=== PATIENT | male | born 1965 | race Caucasian/White ===

== ENCOUNTER → 2025-01-30 | Outpatient (CLI) | payer OTHER, SELFPAY ==
--- NOTE | 2025-01-30 08:13 | MRI_ITS ---
PROCEDURE: BRAIN WITHOUT CONTRAST 01/30/2025 REASON FOR EXAM: Clinical history of ventriculomegaly, syncope TECHNIQUE: Procedure Code: MRIBR Modality: MR Procedure: BRAIN WITHOUT CONTRAST Multiplanar and multisequence images were obtained. COMPARISON: None available. FINDINGS: No acute infarct or hemorrhage. A few scattered nonspecific periventricular and subcortical T2/FLAIR white matter hyperintensities in the cerebral hemispheres compatible with chronic microvascular ischemic changes. No extra-axial fluid collection.No herniation of the brain. There is supratentorial ventriculomegaly. The 4th ventricle is normal in size. There is no transependymal edema. The basal cisterns are patent. The intracranial large vessel arterial flow voids are maintained. The mastoid air cells clear. There is scattered paranasal mucosal thickening. The orbits are unremarkable. The calvarial bone marrow signal is within normal limits. MRI/Brain without Contrast IMPRESSION: 1. Supratentorial ventriculomegaly without transependymal edema suggestive of c hronic obstructive hydrocephalus. 2. No acute infarct or hemorrhage. Reading Location: [id number]
== END | disposition home or self-care (01) ==
PROVIDERS: PCP Family Medicine; Referring Provider Psychiatry & Neurology Neurology; Visit Provider Psychiatry & Neurology Neurology
DX: G93.89 Other specified disorders of brain (principal); R55 Syncope and collapse
CPT/HCPCS: 70551

== ENCOUNTER 2025-02-13 07:49 | Day surgery (SDC) | payer OTHER, SELFPAY ==
[2025-02-13] VITALS (7 sets, daily range): BP systolic 98–116; BP diastolic 65–77; PULSE 48–64; RESP 16–18; TEMP 35.7–36.2; O2SAT 93–97; BMI 25.8
--- OUTSIDE RECORDS SUMMARY | 2025-02-13 07:54 | XMS RPT_ITS | CCD ---
Author Organization [facility] Care Team Providers Care [employer] Instructor Name Role Phone Gabriele Rosales Primary Care Provider Bobby HARDY, Gabriele Littlejohn Unavailable [facility], . Unavailable Omar HARDY, Dr. Gamboa Unavailable Nelson CASE MANAGEMENT ASSOCIATE, Chelita Unavailable Ho LU, Anat Hopkins Unavailable Rudy CASE MANAGEMENT ASSOCIATE, Trang E Unavailable Unavailable Nicky BORDEN, Yasmeen Unavailable Unavailable Trev AMAYAN, Marcie Unavailable Unavailable King KIET-C, Roberto Murdock Unavailable Chandni JIMENEZ, Jennifer Lira Unavailable Unavaila dana Quiroz PA-C, Kirstin Hopkins Unavailable [phone] Goldy CASE MANAGEMENT ASSOCIATE, Nicole Sparks Unavailable Unavailab vicki Tenorio LPN, Jes Tai Unavailable Unavailab vicki Finnegan MD, Anderson Lira Unavailable Kayleen CASE MANAGEMENT ASSOCIATE, Demetria Unavailable Unavailabl e Tang CASE MANAGEMENT ASSOCIATE, Mi Unavailable Unavailable Unavailable Unavailable Oscar CASE MANAGEMENT ASSOCIATE, Lb Unavailable Unavailable Wilmar BORDEN, Sima Unavailable Unavailable Yannick AMAYAN, Hillary Unavailable Unavailabl e RONNY ESPINAL MD Admitting Unavailable RONNY ESPINAL MD Primary Care Unavailable RONNY ESPINAL MD Attending Unavailable GABRIELE ROSALES Consulting Unavailable GABRIELE ROSALES Referring Unavailable PROVIDER, UNKNOWN Consulting Unavailable PROVIDER, UNKNOWN Consulting Unavailable PROVIDER, UNKNOWN Consulting Unavailable ARGENIS GILES Admitting Unavailable ARGENIS GIELS Primary Care Unavailable ARGENIS GILES Attending Unavailable GABRIELE ROSALES Consulting Unavailable PROVIDER, UNKNOWN Consulting Unavailable PROVIDER, UNKNOWN Consulting Unavailable PROVIDER, UNKNOWN Consulting Unavailable Medications Completed/Discontinued Medications Medication Drug Class(es) Dates Sig (Normalized) Sig (Original) [id number] actuat albuterol 0.09 mg/actuat metered dose inhaler (11 sources) beta2-Adrenergic Agonist Start: 07-10-2015 End: 04-20-2017 take 2 puff(s) by inhalation every four to six hours as needed Ventolin HFA 108 (90 Base) MCG/ACT Inhalation Aerosol Solution ; 2 (two) puffs puffs every 4-6 hours as needed for 0 days Quantity: 1 {Inhaler} Refills: 0 Ordered: 20-Apr-2017 ALEX Tenorio Jes Tai Start: 10-Jul-2015 End: 20-Apr-2017 Status: Inactive Comments: Medication taken as needed. Comment on above: Medication taken as needed. amoxicillin 875 mg / clavulanate 125 mg oral tablet (20 sources) Penicillin-class Antibacterial Start: 06-17-2017 End: 04-24-2018 take 1 tablet by mouth twice daily Amoxicillin-Pot Clavulanate 875-125 MG Oral Tablet ; 1 (one) Tablet bid for 0 days Quantity: 20 {Tablet} Refills: 0 Ordered: 24-Apr-2018 Start: 17-Jun-2017 End: 24-Apr-2018 Status: Inactive Start: 12-04-2014 End: 12-14-2014 take 1 tablet by mouth twice daily at mealtime AUGMENTIN, 875-125MG (Oral Tablet) ; 1 (one) Tablet BID for 10 days Quantity: 20 {Tablet} Refills: 0 Ordered: 04-Dec-2014 MD Gabriele Rosales Start: 04-Dec-2014 End: 14-Dec-2014 Status: Inactive Comments: Take with food Comment on above: Take with food azithromycin 250 mg oral tablet (11 sources) Macrolide Antimicrobial Start: 016 End: 016 ZITHROMAX Z-NIURKA, 250MG (Oral Tablet) ; 2 (two) Tablet today and then 1 tablet daily x 4 days for 0 days Quantity: 1 {Package} Refills: 0 Ordered: 30-Jul-2015 ALEX Damon Start: 10-Jul-2015 End: 30-Jul-2015 Status: Inactive codeine phosphate 2 mg/ml / promethazine hydrochloride 1.25 mg/ml oral solution (11 sources) Opioid Agonist, Phenothiazine Start: 018 End: 03-11-2 019 take 5 mL by mouth once daily at bedtime as needed for cough Promethazine-Codeine 6.25-10 MG/5ML Oral Syrup ; 5 Milliliter Milliliter qhs, prn cough for 0 days Quantity: 120 {Milliliter} Refills: 0 Ordered: 24-Apr-2018 Start: 01-Jun-2017 End: 24-Apr-2018 Status: Inactive cyclobenzaprine hydrochloride 10 mg oral tablet (11 sources) Muscle Relaxant Start: End: take 1 tablet by mouth every eight hours Cyclobenzaprine HCl 10 MG Oral Tablet ; 1 (one) Tablet q8hrs for 0 days Quantity: 30 {Tablet} Refills: 0 Ordered: 11-Jan-2020 Start: 28-Mar-2019 End: 11-Jan-2020 Status: Inactive doxycycline hyclate 100 mg oral capsule (11 sources) Tetracycline-class Drug Start: 016 End: take 1 capsule by mouth twice daily DOXYCYCLINE HYCLATE, 100MG (Oral Capsule) ; 1 (one) Cap two times daily for 10 days Quantity: 20 {Capsule} Refills: 0 Ordered: 18-Jul-2015 TABITHA Quiroz Start: 18-Jul-2015 End: 28-Jul-2015 Status: Inactive levoFLOXacin 500 mg oral tablet (11 sources) Quinolone Antimicrobial Start: 015 End: take 1 tablet by mouth once daily LEVAQUIN, 500MG (Oral Tablet) ; 1 Tab Daily for 10 days Quantity: 10 {Tablet} Refills: 0 Ordered: 10-Jun-2015 MD Gabriele Rosales Start: 10-Dec-2014 End: 20-Dec-2014 Status: Inactive meloxicam 7.5 mg oral tablet (11 sources) Nonsteroidal Anti-inflammatory Drug Start: 021 End: take 1 tablet by mouth once daily Meloxicam 7.5 MG Oral Tablet ; 1 (one) Tablet daily for 30 days Quantity: 30 {Tablet} Refills: 2 Ordered: 29-Jan-2022 BARBARA Tariq Start: 26-Feb-2020 End: 29-Jan-2022 Status: Inactive omeprazole 20 mg delayed release oral capsule (12 sources) Proton Pump Inhibitor Start: 018 End: take 1 capsule by mouth once daily Omeprazole 20 MG Oral Capsule Delayed Release ; 1 (one) Capsule DR Capsule DR qd for 0 days Quantity: 30 {Capsule} Refills: 3 Ordered: 04-Dec-2018 ALEX Beyernifer Start: 20-Apr-2017 End: 04-Dec-2018 Status: Inactive Comment on above: Take 20 mg by mouth once daily. ondansetron 4 mg disintegrating oral tablet (11 sources) Serotonin-3 Receptor Antagonist Start: End: take 1 tablet by mouth three times daily as needed Ondansetron 4 MG Oral Tablet Disintegrating ; 1 (one) Tablet three times daily, as needed for 7 days Quantity: 21 {Tablet} Refills: 0 Ordered: 12-May-2020 TABITHA Teague Start: 12-May-2020 End: 19-May-2020 Status: Inactive Comments: Medication taken as needed. Comment on above: Medication taken as needed. oxyCODONE hydrochloride 5 mg oral tablet (11 sources) Opioid Agonist Start: End: take 1 tablet by mouth every four hours as needed for pain oxyCODONE HCl 5 MG Oral Tablet ; 1 (one) Tablet q4h, prn severe pain for 0 days Quantity: 28 {Tablet} Refills: 0 Ordered: 11-Jan-2020 Start: 28-Mar-2019 End: 11-Jan-2020 Status: Inactive Comments: max 4/24 hrs Comment on above: max 4/24 hrs predniSONE 20 mg oral tablet (20 sources) Start: 023 End: 024 predniSONE 20 mg tablet ; 1 (one) Tablet as directed for 0 days Quantity: 20 {Tablet} Refills: 0 Ordered: 23-Jun-2023 ALEX Moore Start: 12-Aug-2022 End: 23-Jun-2023 Status: Inactive Comments: Take 3tabs qd for 3 days thenTake 2tabs qd for 3 days thenTake 1tab qd for 3 days thenTake 1/2tab qd for 4 days. Start: 01-11-2020 End: 01-31-2020 take 3 tablets by mouth once daily, then take 2 tablets by mouth once daily, then take 1 tablet by mouth once daily, then take 0.5 tablet by mouth once daily predniSONE 20 MG Oral Tablet ; 1 (one) Tablet daily for 0 days Quantity: 20 {Tablet} Refills: 0 Ordered: 31-Jan-2020 BARBARA Tariq Start: 11-Jan-2020 End: 31-Jan-2020 Status: Inactive Comments: Take 3tabs qd for 3 days thenTake 2tabs qd for 3 days thenTake 1tab qd for 3 days thenTake 1/2tab qd for 4 days. Start: 12-25-2018 End: 03-28-2019 take 3 tablets by mouth once daily, then take 2 tablets by mouth once daily, then take 1 tablet by mouth once daily, then take 0.5 tablet by mouth once daily predniSONE 20 MG Oral Tablet ; Tablet for 0 days Quantity: 20 {Tablet} Refills: 0 Ordered: 28-Mar-2019 MONIQUE DamonN Chelita Start: 25-Dec-2018 End: 28-Mar-2019 Status: Inactive Comments: Take 3tabs qd for 3 days thenTake 2tabs qd for 3 days thenTake 1tab qd for 3 days thenTake 1/2tab qd for 4 days. Comment on above: Take 3tabs qd for 3 days thenTake 2tabs qd for 3 days thenTake 1tab qd for 3 days thenTake 1/2tab qd for 4 days. sertraline 25 mg oral tablet (11 sources) Serotonin Reuptake Inhibitor Start: 1 End: 1 Sertraline HCl 25 MG Oral Tablet ; 1 (one) Tablet qd x 10days then 1/2 tab qd x 10days then stop for 20 days Quantity: 15 {Tablet} Refills: 0 Ordered: 09-Apr-2020 MD Gabriele Rosales Start: 09-Apr-2020 End: 29-Apr-2020 Status: Inactive traMADol hydrochloride 50 mg oral tablet (11 sources) Opioid Agonist Start: 8 End: 8 take 1 tablet by mouth every six hours as needed for pain TraMADol HCl 50 MG Oral Tablet ; 1 (one) Tablet q 6hrs prn pain for 7 days Quantity: 28 {Tablet} Refills: 0 Ordered: 09-Dec-2017 MD Gabriele Rosales Start: 09-Dec-2017 End: 16-Dec-2017 Status: Inactive Comments: OARRS 12/09/17 Comment on above: OARRS 12/09/17 Problems Active Problems Problem Classification Problem Date Documented Da te Episodic/Chronic Abdominal pain (20 sources) Generalized abdominal pain; Translations: [Generalized abdominal pain] 08-12-2022 Episodic Anxiety disorders (20 sources) Mixed anxiety and depressive disorder; Translations: [Anxiety disorder, unspecified] 08-12-2022 Chronic Chronic obstructive pulmonary disease and bronchiectasis (20 sources) Bronchitis; Translations: [Bronchitis, not specified as acute or chronic] 07-19-2015 Episodic Esophageal disorders (20 sources) Gastroesophageal reflux disease; Translations: [Gastro-esophageal reflux disease without esophagitis] Chronic Headache; including migraine (20 sources) Headache; Translations: [Headache] 08-12-2022 Episodic Nausea and vomiting (20 sources) Nausea; Translations: [Nausea] Episodic Nonspecific chest pain (20 sources) Chest pain; Translations: [Chest pain, unspecified] 08-12-2022 Episodic Osteoarthritis (20 sources) Osteoarthritis of left knee joint; Translations: [Unilateral primary osteoarthritis, left knee] 08-12-2022 Chronic Other circulatory disease (20 sources) Elevated blood-pressure reading without diagnosis of hypertension; Translations: [Elevated blood-pressure reading, without diagnosis of hypertension] 06-08-2023 Episodic Other connective tissue disease (20 sources) Pain in right foot; Translations: [Pain in right foot] 08-12-2022 Episodic Other connective tissue disease (16 sources) Left achilles tendonitis; Translations: [Achilles tendinitis, left leg] 06-23-2023 Episodic Other ear and sense organ disorders (20 sources) Otitis externa; Translations: [Unspecified otitis externa, unspecified ear] 08-12-2022 Chronic Other ear and sense organ disorders (20 sources) Impacted cerumen in left ear; Translations: [Impacted cerumen, left ear] 08-12-2022 Episodic Other ear and sense organ disorders (20 sources) Pain of ear structure; Translations: [Otalgia, unspecified ear] 08-12-2022 Episodic Other injuries and conditions due to external causes (11 sources) Injury of left foot; Translations: [Unspecified injury of left foot, initial encounter] 05-08-2014 Episodic Other non-traumatic joint disorders (20 sources) Pain in left shoulder; Translations: [Pain in joint, shoulder region] 08-12-2022 Episodic Other nutritional; endocrine; and metabolic disorders (20 sources) Body mass index 30+ - obesity; Translations: [Body mass index (BMI) 30.0-30.9, adult] 08-12-2022 Chronic Other screening for suspected conditions (not mental disorders or infectious disease) (20 sources) Patient encounter status; Translations: [Encounter for screening for malignant neoplasm of prostate] 06-08-2023 Episodic Other upper respiratory infections (20 sources) Upper respiratory infection; Translations: [Acute upper respiratory infection, unspecified] 12-04-2018 Episodic Residual codes; unclassified (1 source) Family history of malignant neoplasm of gastrointestinal tract; Translations: [Family history of malignant neoplasm of digestive organs] Episodic Spondylosis; intervertebral disc disorders; other back problems (20 sources) Acute low back pain; Translations: [Lumbago] 08-12-2022 Episodic Unclassified (11 sources) Follow up for multiple chronic conditions - The patient is here for follow-up of anxiety and depression. The patient always takes the prescribed medications. No side effects noted (needs refills if he should continue meds). The patient engages in regular exercise program 3-5 times per week (6x/week at gym). The patient's out of office blood pressure checks occur rarely. The patient states that there is no recent angina or dyspnea, in general mood has improved ( has noticed a slight difference. Patient feels that the sertraline may be making him feel a little better, would like to discuss increasing dosage.) and they do not have headaches. Note for Multiple chronic conditions follow-up: Patient here today for 4 week follow-up, at last office visit he was started on Sertraline 25mg daily. he states that he has noticed only a small improvement in his mood and is interested in increasing the dose of his medication today. Also seen for left shoulder pain and started on Meloxicam 7.5mg daily. The Meloxicam has helped but continues to have pain of his left shoulder, states that the pain is not debilitating as it was. The shoulder pain seems to be worse in the evenings. Feels that the meloxicam is hard on his stomach, will become nauseated after taking. He has been taking the meloxicam with food. 02-26-2020 Past or Other Problems Problem Classification Problem Date Documented Da te Episodic/Chronic Unclassified (11 sources) Foot pain - The pain is in the right foot and is located in the midfoot (Around the arch of the foot). The onset of the foot pain was gradual following no specific incident and has been occurring in a persistent pattern for 1 week. The course has been gradually improving. The pain is mild to moderate. The pain is characterized as tearing. The pain is aggravated by any movement. The pain has been relieved by NSAIDs and ice. The symptoms have been associated with muscle stiffness, giving way, swelling, pain in ankle, popping/crepitus and difficulty with shoe wear, but have not been associated with muscle weakness, locking, pain in calf, painful ROM, decreased ROM, warmth or other joint complaints. Note for Foot pain: Patient denies any known injury. 08-12-2022 Unclassified (11 sources) Ear pain - The onset of the pain has been gradual and has been occurring in a persistent pattern for days (10-14 days). The course has been constant (some days are better, some days are worse). The pain is described as a moderate (moderate to severe) sharp pain, pressure and plugged. The pain is described as being located in the inner ear. The pain is felt in the left ear. The symptoms have been associated with runny nose (mild) and tinnitus (constant), while the symptoms have not been associated with chills, decreased hearing, fever, non-purulent discharge from ear, purulent discharge from ear, sore throat, cough or vertigo. Medical History includes recurrent sinusitis, but there is no history of seasonal allergies. Note for Ear pain: Been taking Advil at night. The ear pain seems to get worse at night. Advil temporarily relieves pain. 01-29-2022 Unclassified (11 sources) Nausea - The nausea has been occurring in an intermittent (comes and goes throughout the day but is daily occurance) pattern for 1 month. The course has been constant. The nausea occurs approximately one hour after meals (also when something is put in his mouth such as taking a pill, using tooth brush). The symptoms are aggravated by eating. The symptoms have been associated with abdominal pain (usually in the lower abdomen, patient reports that this pain occurs randomly and is not associated with the diarrhea or constipation he is experiencing), chest pain, diarrhea (1-3 times a week, loose but not bloody), headache and vomiting (multiple times over the past month, reports 2-3 times a week), but there has been no associated dysuria, fever, hematemesis or jaundice. Note for Nausea: Takes Pepto-bismul and Kaopectate, these help some. Sometimes, drinking coke will help.Does have heartburn that is getting worse. Does take Prilosec as needed. Has not been using Prilosec much recently.States that he does not have an appetite or he will eat a lot. Usually can not sleep but then will have some nights that he sleeps all night.The patient reports that these symptoms seemed to start when he was taking Sertraline for his anxiety. The patient has tapered off of the sertraline, but the symptoms have not changed since he stopped the medication. The patient reports that he has good days and bad days with his anxiety, but he is not interested in trying another medication at this time. 05-12-2020 Unclassified (11 sources) Follow-up - Patient is here today for follow-up for chest pain. Was last seen for chest pain 01/11/2020. Had EKG done that was normal. CRP, ESR, CMP and CBC done at that time. Was started on Prednisone taper dose. Feels that the steroids helped but continues to have pain of the left shoulder/shoulder blade/ upper back left side. He states that his chest pain has completely resolved and that the shoulder pain is slightly better. He states that the pain is his shoulder is a constant, aching pain, but it will randomly feel the pain become sharp and more intense. He states that this change in pain intensity happens about 10-20 times a day and that there is no increase or change in the pain with shoulder movement. Patient denies any previous injury to his left shoulder.States that his job is very stressful--is having trouble sleeping. Feels depressed. Feels shaky all over. Is not able to relax. He states that he will have episodes of shakiness during which his arms will shake and he will feel like his whole body can't relax. He denies any loss of consciousness, passing out, shortness of breath, palpitations, chest pain, or sweating with these episodes. He states that these episodes happen multiple times a week and have been happening for a while. He has been feeling anxious and depressed for several years, but this has greatly worsened over the past year. The patient states that he was offered medication for depression several years ago, but opted to try lifestyle changes instead, which worked for some time. The patient reports that he has little interest in doing things and has a hard time getting out of bed in the morning. He reports also feeling nervous, anxious, and irritable. He reports that most times he wishes he was , but he has never considered killing himself. He reports that he loves his family and would never want to leave them in that way. 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 01-31-2020 Unclassified (11 sources) Chest pain - The onset of the pain has been sudden and has been occurring in a persistent pattern for 1 week. The pain is described as a moderate sharp pain and stabbing sensation. The pain is described as being located in the left chest and radiates to the left arm and back. There are no precipitating factors. The symptoms have no aggravating factors. The symptoms are relieved by nothing (Patient states that Aleve takes the edge off the pain). There has been no associated blurred vision, dizziness, dyspnea, fever or headache. Previous evaluations include ECG (EKG for similar chest pain in 2017 was normal). Note for Chest pain: Patient denies any palpitations, headache, nausea, vomiting, cough, or shortness of breath. Patient has had similar episodes of chest pain in the past. 01-11-2020 Unclassified (11 sources) Back pain - The onset of the back pain has been sudden and has been occurring in a persistent pattern for 3 days. The pain is characterized as stabbing. The pain is located in the lumbar area. The pain is precipitated by another event (getting dressed). Note for Back pain: -Tried heat and 600mg ibuprofen for pain relief. 03-28-2019 Unclassified (11 sources) Knee pain - The onset of the knee pain has been sudden following no specific incident and has been occurring for 2 days. The knee pain is in the left knee. The knee pain is characterized as a dull aching (Lump is noted). 12-25-2018 Unclassified (11 sources) Cold Symptoms - Symptoms include runny nose, ear pain, sore throat, dry cough, general malaise and headache, but do not include nasal congestion. The onset was sudden 1 day(s) ago. The symptoms occur constantly. The patient describes this as moderate in severity and unchanged. Current treatment includes NSAIDs (2 am). The patient has been exposed to an individual with similar symptoms. Medical history includes seasonal allergies, but patient denies history of recurrent sinusitis, recurrent strep pharyngitis, asthma, tonsillectomy or recurrent ear infections. Note for Upper respiratory infection: Does get sinus infections yearly. 12-04-2018 Unclassified (11 sources) Well adult male - The patient feels well with no complaints, has good energy level and is sleeping well. The patient has a balanced diet and takes no supplemental vitamins & iron. The patient does not exercise. The patient sleeps 7 hours per night. Note for Well adult male: foster care examred and brown spots on hands wanting looked at reviewed by B 04-24-2018 Unclassified (11 sources) Headache - The onset of the headache has been acute and has been occurring in a persistent pattern for 2 weeks. The course has been constant. The headache is characterized as moderate and a dull ache. The headache is experienced any time of the day (no diurnal variation). The headache is described as being located in the frontal area. The symptoms have been associated with nausea. Note for Headache: reviewed by B 12-09-2017 Unclassified (11 sources) Cold Symptoms - Symptoms include nasal congestion, hoarseness, dry cough, productive cough, fever, chills and headache, but do not include ear pain. The onset was sudden 4 day(s) ago. The symptoms occur constantly. The patient describes this as moderate in severity and unchanged. Current treatment includes non-prescription cold medication. The patient has been exposed to an individual with similar symptoms. 06-01-2017 Unclassified (11 sources) Gastroesophageal Reflux Disease - No changes in management were made at the last visit. The last clinic visit was 2 year(s) ago. Symptoms include heartburn and acid taste in the mouth. Onset was gradual. The patient describes this as worsening. Note for Gastroesophageal reflux disease: Has tried OTC Nexium with no improvement. Had previously been Omeprazole(2014) and did well on that medication. He had EGD in 2014 and was reportedly normal. 04-20-2017 Unclassified (11 sources) Chest pain - The onset of the pain has been gradual and has been occurring in a persistent pattern for 3 days (woke up and pain was there.). The pain is described as a mild to moderate pressure sensation (Feels like someone sitting on chest with needles.). There are no precipitating factors. The symptoms are relieved by rest. The symptoms have been associated with cough (occasional cough and getting over some sinus issues.) and headache (uses Ibuprofen for this which helps with headache but does not relieve chest pain.), but have not been associated with blurred vision, dizziness, fever, hypertension, nausea, neck pain, palpitations or vomiting. There have been no previous evaluations. Note for Chest pain: Pain is in both sides of chest and into shoulders and both sides. Its in upper and lower chest area. Pain is worse when he turns certain way or bends forward. Also hurts when he goes to lay down. Pt has hx of GERD. Noted some intermittent left arm pain without exertion. Tolerates activities well. 04-08-2016 Unclassified (11 sources) Cold Symptoms - Symptoms include nasal congestion, runny nose, ear pain, sore throat, dry cough, productive cough (cough is worst symptom; + wheezing; no SOB) and headache, but do not include fever or general malaise. The onset was gradual 3 day(s) ago. The symptoms occur constantly. The patient describes this as moderate in severity and unchanged. Current treatment includes mucinex. The patient has been exposed to an individual with similar symptoms (daughter). Medical history includes recurrent sinusitis and tonsillectomy, but patient denies history of seasonal allergies, recurrent strep pharyngitis, asthma or recurrent ear infections. 07-10-2015 Unclassified (11 sources) Cold Symptoms - Symptoms include sneezing, nasal congestion, runny nose, ear pain, sore throat, hoarseness, dry cough and headache, but do not include ear fullness, fever, chills or general malaise. The onset was sudden 3 day(s) ago. The symptoms occur constantly. The patient describes this as moderate in severity and worsening. Current treatment includes non-prescription cold medication and NSAIDs. Patient denies history of seasonal allergies or asthma. Note for Upper respiratory infection: Pt gets sinusitis frequently. 12-04-2014 Unclassified (11 sources) Plugged ear - Was swimming 5 days and left ear has felt plugged ever since. No pain. Also complains of tinnitus. reviewed by [facility] 10-14-2014 Unclassified (11 sources) toe injury - Patient is here with complaining of toe pain. Today he slipped on a step and hit toes on the steps. Thinks they bent underneath him. It is his left foot; 4th and 5th digits. Are red, swollen, and painful. Has not taken any medication. 05-08-2014 Unclassified (11 sources) Abdominal pain - The onset of the abdominal pain has been acute and has been occurring in a persistent pattern for 3 months. The course has been increasing. The pain is described as a moderate dull ache (nausea) and cramping (on occasion). The pain is located in the upper abdomen and does not radiate. The symptoms have no relieving factors. The symptoms have been associated with bloating, constipation, diarrhea and nausea. Note for Abdominal pain: He was seen in Oct for this. Took Omeprazole 20mg daily for 1 month. Symptoms improved but then came back. not as bad as before. He cut down carbs and cut out wine . He cut down caffeine. Sx are better than they were in Oct. 03-20-2014 Unclassified (11 sources) Cold Symptoms - Symptoms include nasal congestion, runny nose (mostly PND), ear fullness, sore throat, dry cough (some chest tightness), general malaise, headache and facial pain, but do not include fever or chills. The onset was gradual 2 day(s) ago. The symptoms occur constantly. The patient describes this as moderate in severity and unchanged. Current treatment includes acetaminophen and NSAIDs. The patient has been exposed to an individual with similar symptoms. Medical history includes recurrent sinusitis (Says he gets this every year.) and tonsillectomy, but patient denies history of seasonal allergies, recurrent strep pharyngitis, asthma or recurrent ear infections. 11-22-2013 Unclassified (11 sources) Nausea - The onset of the nausea has been gradual and has been occurring in an intermittent pattern for 6 months. The course has been recurrent. The nausea occurs approximately one hour after meals. The symptoms are aggravated by eating. The symptoms are relieved by antacids (Pepto Bismal helps sometimes.). The symptoms have been associated with abdominal pain (and has occassional diarrhea or constipation.). Note for Nausea: Nausea is bad enough sometimes that it auses headache. Pt states he has put on 25# over last 10 mnths. Pt just moved here from [place] 1 year ago. He eats out now a lot as part of his work and diet is much different. Much more strach in deit now. 11-12-2013 Unclassified (1 source) Well adult male 06-23-2023 Unclassified (8 sources) Well adult male - The patient feels well with minor complaints (left heel pain). The patient has a balanced diet. The patient exercises daily. The patient sleeps 7 hours per night. Note for Well adult male: reviewed by [facility] 06-23-2023 Unclassified (1 source) Chest pain - The onset of the pain has been sudden and has been occurring in an episodic pattern for 5 days. Each episode lasts 1 minute. The pain is described as a moderate to severe sharp pain and stabbing sensation. The pain is described as being located in the substernal area and does not radiate. There are no precipitating factors. The symptoms are aggravated by stress. The symptoms are relieved by rest. The symptoms have been associated with dizziness and fever (Pt states that after he got back from working out of town he had fever, chills coughing, sneezing. Pt states that in past day his Sx are a lot better just feeling weak. These symptoms started on Tuesday.). There have been no previous evaluations. There is a medical history of asthma (as a child), while there is no medical history of cigarette smoking or emotional problems. There is a family history of myocardial infarction before age 55 (uncle) and hypertension (mother), while there is no family history of diabetes. 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 This happened as a singular episode on Tuesday. He has not had any episodes since. 08-16-2024 Results Test Name Value Interpretation Reference Range Facility ED MED ADMINISTRATION DETAIL on 11-02-2024 ED MED ADMINISTRATION DETAIL Architectural Associate - DAYANNA APONTE DOB: 1965, , Medication Administration Record [id number] [facility] [place] [address] [phone] 10/30/2024 Patient: DAYANNA APONTE Sex: Male : 1965 Age: 59y MEASUREMENTS: Wt: 79.4 kg, Ht/Kee: 70.0 in, BMI: 25.11 ALLERGIES: No known drug allergies Medication Ordered Medication Administration Date/Time CefTRIAXone 06:12 10/30 CefTRIAXone (Rocephin) IVPB 2gm/50ml NS 2 Started (Rocephin) IVPB g started at 100 mL/hr diluted in sodium chloride IVPB 0.9 06:12 10/30/2024 2gm/50ml NS 2 % Minibag+ 50 mL via Site# 1. Allergies verified and Maggie Blake R.N. g diluted in confirmed 5 rights. IV patency established. IV site Stopped sodium chloride checked: no pain, redness, or swelling. IV flushed 07:00 10/30/2024 IVPB 0.9 % thoroughly pre-medication administration. Information Yaw Mi, Minibag+ 50 mL reviewed. Verbalizes understanding. - 06:13 Maggie Blake R.NLiban at 100 mL/hr R.N. Scanned (NOW x1) 07:00 10/30 Medication Discontinued: IV infused. Total amount infused: 50 mL. IV patency established. IV site checked: no pain, redness, or swelling. IV flushed thoroughly post-medication administration. - 07:00 Yaw Mi R.N. 1 of 3 Architectural Associate - DAYANNA APONTE, : 1965, , IV NS 0.9 % 06:10/30 IV NS 0.9 % 1000 mL started in bag#1 1000 Started 1000 mL at 999 mL at 999 mL/hr via Site# 1. Allergies verified and 06:10/30/2024 mL/hr (NOW x1) confirmed 5 rights. IV patency established. IV site Maggie Blake R.N. checked: no pain, redness, or swelling. IV flushed Stopped thoroughly pre-medication administration. Information 07:32 10/30/2024 reviewed. Verbalizes understanding. - 06:13 Lynn Sarabia R.N. R.N. Scanned 07:32 10/30 Medication Discontinued: bag #1 infused. Total amount infused: 1000 mL. IV patency established. IV site checked: no pain, redness, or swelling. IV flushed thoroughly post-medication administration. - 07:32 Lynn Khoury R.N. Ondansetron 06:11 10/30 Ondansetron IVP 4 mg given via Site# 1. Given IVP 4 mg (NOW Allergies verified and confirmed 5 rights. IV patency 06:11 10/30/2024 x1) established. IV site checked: no pain, redness, or swelling. Maggie Blake R.N. IV flushed thoroughly pre-medication administration. - Scanned 06:13 Maggie Blake R.N. GI Cocktail PO 07:10/30 GI Cocktail PO given. Allergies verified and Given (Maalox Oral 30 confirmed 5 rights. Information reviewed with patient 07:28 10/30/2024 mL, lidocaine including reason for taking this medication. Verbalizes Lynn Khoury Lidocaine understanding. - 07:28 Lynn Khoury R.N. RLibanN. Viscous 2 % Not Scanned mucosal solution 5 mL, hyoscyamine ODT (0.125 mg disintegrating tablet) 0.125 mg) (NOW x1) 2 of 3 Architectural Associate - APONTEDAYANNA, : 1965, , HYDROmorphon 08:12 10/30 HYDROmorphone (Dilaudid) IVP 0.5 mg given Given e (Dilaudid) IVP via Site# 1. Allergies verified and confirmed 5 rights. IV 08:12 10/30/2024 0.5 mg (NOW patency established. IV site checked: no pain, redness, or Lynn Khoury, x1, HIGH ALERT swelling. IV flushed thoroughly pre-medication R.N. MEDICATION) administration. Information reviewed with patient Scanned including reason for taking this medication and sedative warning. Verbalizes understanding. Medication Wastage: 0.5 mg wasted. - 08:12 Lynn Khoury R.N. Pantoprazole 09:17 10/30 Pantoprazole (Protonix) IVP 40 mg given via Given (Protonix) IVP Site# 1. Allergies verified and confirmed 5 rights. IV 09:17 10/30/2024 40 mg (NOW x1) patency established. IV site checked: no pain, redness, or Lynn Iarida, swelling. IV flushed thoroughly pre-medication R.N. administration. Information reviewed with patient. Scanned Verbalizes understanding. - 09:17 Lynn Khoury R.N. 3 of 3 Normal [facility] ED NURSES CLINICAL NOTEon ED NURSES CLINICAL NOTE Nurse Narrative - DAYANNA APONTE, : 1965, , Nurse Clinical Narrative [address] [address] [id number] 10/30/2024 05:54:00 Patient: DAYANNA APONTE Sex: Male : 1965 Age: 59y Disposition: Observation to Med/Surg Disposition Decision Time: 09:26 10/30/2024 Departure Time: 10:24 10/30/2024 TRIAGE 05:57 10/30/24. BP: 127/78 MAP: 87 mmHg. HR: 57 bpm. -- 06:01 10/30/24 EDT Maggie Blake R.N. 05:57 10/30/24. HR: 57 bpm. O2 saturation: 97%. -- 06:01 10/30/24 EDT Maggie Blake R.N. Arrived by EMS. Historian: (patient). Primary physician (Bobby). Triage time: 05:59 10/30/2024. Acuity: LEVEL 3. Chief Complaint: ABDOMINAL PAIN, NAUSEA, VOMITING and DIARRHEA. This started yesterday. The patient has had nausea, vomiting, diarrhea and abdominal pain. SEPSIS SCREEN: NEGATIVE. SIRS criteria negative. No possible sources of infection. -- 06:02 10/30/24 AMANDAT Maggie Blake R.N. 06:01 10/30/24. RR: 14. Temperature: 97.9 F. Pain level now 6/10. -- 06:01 10/30/24 EDT Maggie Blake R.N. Measurements: 06:02 10/30/24 Wt: 79.4 kg, Ht/Kee: 70.0 in, BMI: 25.11 -- 06:02 10/30/24 AMANDAT Maggie Blake R.N. Medications: no home medications -- 06:03 10/30/24 GLENDY Blake R.N. 1 of 5 Nurse Narrative - DAYANNA APONTE, : 1965, , Allergies: no known drug allergies -- 06:00 10/30/24 AMANDAT Maggie Blake R.N. Problems: no known problem -- 06:00 10/30/24 AMANDAT Maggie Blake R.N. Surgeries: Tonsillectomy -- 06:00 10/30/24 GLENDY Blake R.N. Orchiopexy -- 06:00 10/30/24 AMANDAT Maggie Blake R.N. History 05:59 10/30/24. SOCIAL HX: Never smoker. No alcohol use or drug use. The patient has not traveled outside the [place] Infectious disease exposure: No infectious disease exposure. ABUSE ASSESSMENT: The patient answered yes to the question(s) Do you feel safe in your home? and no to the question(s) Are you afraid to go home?. SELF HARM ASSESSMENT: Self harm assessment was performed. The patient answered no to the question(s) Have you recently felt down, depressed, or hopeless? and Do you have thoughts of harming or killing yourself?. FALL RISK ASSESSMENT: Fall risk assessment completed. No risk factors identified. -- 06:02 10/30/24 GLENDY Blake R.N. Interventions 05:59 10/30/24. Identification band on patient. -- 06:02 10/30/24 AMANDAT Maggie Blake R.N. PHYSICAL ASSESSMENT 06:01 10/30/24. RR: 14. Temperature: 97.9 F. Pain level now 10. -- 06:27 10/30/24 AMANDAT Yaw Mi R.N. 2 of 5 Nurse Narrative - DAYANNA APONTE, : 1965, , 06:06 10/30/24. To room via stretcher. Patient gowned. GENERAL / NEURO / PSYCH: Alert. Oriented X 4. No decreased awareness. Not disoriented. ( pt states he passed out in shower this am, round 5, helped him dry off and called ems, pt endorses having vomited x 4-5 times, generalized mid abd pain burning, + headache, denies any cp/sob/cough or sick contacts.). RESPIRATORY: Respirations not labored. Breath sounds within normal limits. CVS: Normal sinus rhythm noted. Cardiac rhythm: normal sinus rhythm. GI / : The patient has had nausea. Abdomen soft. Abdominal tenderness diffusely. No abdominal distention or mass present in the abdominal region. SKIN: Skin is pale. Skin is warm and dry. -- 06:31 10/30/24 EDT Yaw Mi R.N. 06:12 10/30/24. HR: 58 bpm. RR: 9 rpm. O2 saturation: 98%. -- 06:10/30/24 EDT Yaw Mi R.N. 06:22 10/30/24. HR: 56 bpm. RR: 12 rpm. O2 saturation: 95%. -- 06:10/30/24 EDT Yaw Mi R.N. 06:26 10/30/24. BP: 117/77 MAP: 89 mmHg. HR: 58 bpm. -- 06:10/30/24 EDT Yaw Mi R.N. NURSING PROGRESS NOTES 06:07 10/30/24. Site #1 started in the left antecubital space with an 18g needle; 1 attempt. Blood drawn: rainbow set and benitez tube(s) and cultures x 1. Labeled in the presence of the patient and sent to the lab. Saline lock flushed with 5 mL saline. -- 06:12 10/30/24 EDT Maggie Blake R.N. 06:11 10/30/24. Ondansetron IVP 4 mg given via Site# 1. Allergies verified and confirmed 5 rights. IV patency established. IV site checked: no pain, redness, or swelling. IV flushed thoroughly pre-medication administration. -- 06:13 10/30/24 AMANDAT Maggie Blake R.N. 06:12 10/30/24. front desk monitor, NIBP monitor and pulse oximeter placed on patient. Patient gowned. Head of bed elevated 30 degrees. Patient identifiers checked. Call light placed in reach. Side rails up. Bed placed in lowest position. Brakes of bed on. -- 06:37 10/30/24 EDT Yaw Mi R.N. 06:12 10/30/24. CefTRIAXone (Rocephin) IVPB 2gm/50ml NS 2 g started at 100 mL/hr diluted in sodium chloride IVPB 0.9 % Minibag+ 50 mL via Site# 1. Allergies verified and confirmed 5 rights. IV patency e (more content not included)... Normal [facility] ED ORDER SHEET (CPOE ONLY)on 11-02-2024 ED ORDER SHEET (CPOE ONLY) Order Sheet - DAYANNA APONTE, : 1965, , Order Sheet [address] [address] [id number] 10/30/2024 Patient: DAYANNA APONTE Sex: Male : 1965 Age: 59y MEASUREMENTS: Wt: 79.4 kg, Ht/Kee: 70.0 in, BMI: 25.11 ALLERGIES: No known drug allergies MEDICATION/IV/DRIP/FL UID ORDERS Acknowledge Order Description Priority Entered d Completed CefTRIAXone (Rocephin) 06:04 10/30/2024 06:13 IVPB 2gm/50ml NS2 g Catherine Ahuja D.O. 10/30/2024 diluted in sodium chloride Maggie Blake IVPB 0.9 % Minibag+ 50 mL R.NLiban at 100 mL/hr (NOW x1) IV NS 0.9 %1000 mL at 999 06:04 10/30/2024 06:13 mL/hr (NOW x1) Catherine Ahuja D.O. 10/30/2024 Maggie Blake R.N. Ondansetron IVP4 mg 06:04 10/30/2024 06:13 (NOW x1) Catherine Ahuja D.O. 10/30/2024 Maggie Blake R.N. GI Cocktail PO(Maalox Oral 07:18 10/30/2024 07:25 07:28 30 mL, lidocaine Lidocaine Catherine Ahuja D.O. 10/30/2024 10/30/2024 Viscous 2 % mucosal solution Lynn Bailey 5 mL, hyoscyamine ODT Evelin Khoury R.N. 1 of 6 Order Sheet - DAYANNA APONTE, : 1965, , (0.125 mg disintegrating tablet) 0.125 mg) (NOW x1) HYDROmorphone 08:06 10/30/2024 08:09 08:12 (Dilaudid) IVP0.5 mg (NOW Gely WrayOLiban 10/30/2024 10/30/2024 x1, HIGH ALERT MEDICATION) Evelin Garner R.N. Pantoprazole (Protonix) 09:05 10/30/2024 09:14 IVP40 mg (NOW x1) Catherine Ahuja D.O. 10/30/2024 Lynn Khoury R.N. LAB ORDERS Acknowledge Order Description Priority Entered d Collected Completed CBC w Diff Stat Stat 06:04 06:23 06:24 10/30/2024 10/30/2024 10/30/2024 Yaw Wray Charles Wilbur, D.O. R.NLiban R.NLiban CMP Stat Stat 06:04 06:23 06:24 10/30/2024 10/30/2024 10/30/2024 Yaw Wray Charles Wilbur, D.O. R.N. R.NLiban Blood Culture Stat 06:04 06:23 06:24 [Randi] # 1 Stat 10/30/2024 10/30/2024 10/30/2024 Yaw Wray Charles Wilbur, D.O. R.N. R.NLiban Blood Culture Stat 06:04 06:23 06:24 [Randi] # 2 Stat 10/30/2024 10/30/2024 10/30/2024 Yaw Wray Charles Wilbur, D.O. R.N. RLibanNLiban 2 of 6 Order Sheet - DAYANNA APONTE, : 1965, , Troponin-I Protocol Stat 06:04 06:23 06:25 (STAT 1hr) (Sched: 10/30/2024 10/30/2024 10/30/2024 q1h X2); Stat 1 of 2 Yaw Wray Charles Wilbur, D.O. R.N. R.NLiban Troponin-I Protocol Stat 06:04 07:18 07:18 (STAT 1hr) (Sched: 10/30/2024 10/30/2024 10/30/2024 q1h X2); Stat 2 of 2 Lynn Wray Sarah Fechuch, D.O. R.N. RLibanNLiban Lactate, Serum Stat Stat 06:04 06:23 06:24 10/30/2024 10/30/2024 10/30/2024 Yaw Wray Charles Wilbur, D.O. R.N. R.NLiban Urinalysis Stat Stat 06:04 06:23 08:58 10/30/2024 10/30/2024 10/30/2024 Yaw Wray, [facility] Reyes.O. R.NLiban Flu Swab Stat 06:04 06:23 06:24 (Influenzae AAg) 10/30/2024 10/30/2024 10/30/2024 Stat Yaw Wray Charles Wilbur, D.O. R.N. R.NLiban Rapid COVID (SARS) Stat 06:04 06:23 06:25 ANTIGEN TEST Stat 10/30/2024 10/30/2024 10/30/2024 Yaw Wray Charles Wilbur, D.O. R.N. R.NLiban 3 of 6 Order Sheet - DAYANNA APONTE, : 1965, , EKG - ED Stat Stat 06:04 06:23 06:24 10/30/2024 10/30/2024 10/30/2024 Yaw Wray Charles Wilbur, D.O. R.N. R.N. Lipase Stat Stat 06:04 06:23 06:24 10/30/2024 10/30/2024 10/30/2024 Yaw Wray Charles Wilbur, D.O. R.N. R.N. CRP Stat Stat 06:04 06:23 06:24 10/30/2024 10/30/2024 10/30/2024 Yaw Wray Charles Wilbur, D.O. R.N. R.N. C Diff Complete Stat Stat 06:10 06:24 06:25 10/30/2024 10/30/2024 10/30/2024 Yaw Wray Charles Wilbur, D.O. R.N. R.N. Stool Culture Stat 06:10 06:24 06:25 [RANDI] Stat 10/30/2024 10/30/2024 10/30/2024 Yaw Wray Charles Wilbur, D.O. R.N. R.NLiban hospitalist please 09:21 09:24 09:24 10/30/2024 10/30/2024 10/30/2024 Lynn Wray, Lynn Khoury D.O. R.N. R.NLiban DIAGNOSTIC STUDY ORDERS Order Description Priority Entered Acknowledge Completed 4 of 6 Order Sheet - DAYANNA APONTE, : 1965, , d CT Chest PE Study Stat Stat 06:04 10/30/2024 06:24 06:25 Catherine Ahuja D.O. 10/30/2024 10/30/2024 Evelin Guerra, R.N. Reason for Study: Pulmonary Disease CT Brain wo Cont Stat Stat 06:04 10/30/2024 06:24 06:25 Catherine Ahuja D.O. 10/30/2024 10/30/2024 Evelin Guerra, R.N. Reason for Study: Headache CT C-Spine wo Cont Stat Stat 06:04 10/30/2024 06:24 06:25 Catherine Ahuja D.O. 10/30/2024 10/30/2024 Yaw Albright (more content not included)... Normal [facility] ED PHYSICIAN CLINICAL REPORT on 11-02-2024 ED PHYSICIAN CLINICAL REPORT Narrative - DAYANNA APONTE, : 1965, , Physician Clinical [facility] [address] [place] [address] [id number] 10/30/2024 05:54:00 Patient: DAYANNA APONTE Sex: Male : 1965 Age: 59y Disposition: Observation to Med/Surg Disposition Decision Time: 09:26 10/30/2024 Departure Time: 10:24 10/30/2024 Measurements Wt: 79.4 kg, Ht/Kee: 70.0 in, BMI: 25.11 Initial Vital Sign Measured Rachel Time BP MAP HR RR O2Sat ETCO2 Temp n GCS RTS 05:57 127/78 87 57 10/30/2024 Time Seen: 05:49 10/30/2024. Arrived- By ambulance. Historian- patient. Independent historian- EMS personnel. HISTORY OF PRESENT ILLNESS Chief Complaint: ABDOMINAL PAIN. It is described as sharp. No radiation. It is described as located in the periumbilical area. This started yesterday and is still present. At its maximum, severity described as 8 / 10. When seen in the E.D., severity described as 7 / 10. The patient has had nausea, vomiting and diarrhea. (Passed out in the shower this am). Similar symptoms previously. None. Recent medical care: Not recently seen/assessed. Narrative - DAYANNA APONTE, : 1965, , REVIEW OF SYSTEMS EYES: No blurred vision. RESPIRATORY: No difficulty breathing or cough. NEUROLOGICAL: The patient has had a headache. CONSTITUTIONAL: No fever or chills. The patient has not had weight loss. : No difficulty with urination, pain with urination or urinary frequency. GI: No constipation, black stools or hematemesis. MUSCULOSKELETAL: No joint pain or back pain. SKIN: No skin rash. CVS: No chest pain. THROAT: No sore throat. PAST HISTORY See nurses notes. no known problem Surgeries: Orchiopexy Tonsillectomy Medications: no home medications Allergies: no known drug allergies SOCIAL HISTORY Never smoker. No alcohol use or drug use. ADDITIONAL NOTES The nursing notes have been reviewed. PHYSICAL EXAM Appearance: Alert. Oriented X3. No acute distress. Eyes: Pupils equal, round and reactive to light. ENT: Nose normal. Dry mucous membranes present. Pharynx normal. 2 of 23 DAYANNA Benson, : 1965, , Neck: Normal inspection. Neck supple. CVS: Normal heart rate and rhythm. Heart sounds normal. Pulses normal. Respiratory: No respiratory distress. Decreased air movement in the bases bilaterally. No wheezes. Abdomen: Moderate tenderness in the periumbilical area with guarding present. No rebound tenderness. Abnormal bowel sounds: diminished. No organomegaly. No mass. Not soft. No distention. Skin: Slight pallor. Cool skin. Slight diaphoresis. Extremities: Extremities exhibit normal ROM. No lower extremity edema. Neuro: Oriented X 3. No motor deficit. No sensory deficit. LABS, X-RAYS, AND EKG 12-LEAD EKG: EKG time: 05:57 10/30/2024. Narrow-complex bradycardia (57 ventricular rate). Sinus bradycardia. Normal P waves. Normal QRS complex. Normal ST and T waves. The study has been interpreted contemporaneously by me. The EKG appears to be a good tracing. Interpretation time: 05:57 10/30/2024. Laboratory Tests: C-REACTIVE PROTEIN Final ANH: 10/30/2024 06:05:00 EDT MsgRcvd: 10/30/2024 07:10 EDT Lab Test Result Reference Status Received 10/30/2024 07:10 CRP 0.27 mg/dl 0.00 - 0.90 Final EDT CBC + DIFF Final ANH: 10/30/2024 06:05:00 EDT MsgRcvd: 10/30/2024 06:39 EDT Lab Test Result Reference Status Received 10/30/2024 06:39 CBC + DIFF Final EDT CBC-COMPLETE BLOOD COUNT 10/30/2024 06:39 WBC 10.8 x 10/UL 4.5 - 10.8 Final EDT 3 of 23 DYAANNA Benson, : 1965, , 10/30/2024 06:39 RBC 5.79 x 10/UL 4.50 - 6.00 Final EDT 10/30/2024 06:39 HEMOGLOBIN 17.2 g/dl 13.0 - 17.5 Final EDT 10/30/2024 06:39 HEMATOCRIT 50.9 % 40.0 - 52.0 Final EDT 10/30/2024 06:39 MCV 88 fl 81 - 98 Final EDT 10/30/2024 06:39 MCH 30 pg 27 - 33 Final EDT 10/30/2024 06:39 MCHC 34 X10 3 32 - 36 Final EDT 10/30/2024 06:39 RDW/CV 13.3 % 12.0 - 15.6 Final EDT 10/30/2024 06:39 PLATELET 352 x10/UL 150 - 450 Final EDT 10/30/2024 06:39 MPV 7.5 fl 6.4 - 10.5 Final EDT AUTOMATED DIFFERENTIAL 10/30/2024 06:39 NEUT % 76.0 % 46.0 - 76.0 Final EDT 16.2 % 10/30/2024 06:39 LYMPH % 20.0 - 45.0 Final Below low normal EDT 10/30/2024 06:39 MONOS % 6.2 % 0.0 - 10.0 Final EDT 10/30/2024 06:39 EO % 1.5 % 0.0 - 7.0 Final EDT DAYANNA Benson, : 1965, , 10/30/2024 06:39 BASO % 0.2 % 0.0 - 2.0 Final EDT 10/30/2024 06:39 Lymph # 1.75 x10/UL 0.80 - 2.80 Final EDT 8.20 x10/UL 10/30/2024 06:39 Neut # 1.50 - 7.10 F (more content not included)... Normal [facility] ED SUPER BILLon 11-02-2024 [facility], : 1965, , [address] [address] [id number] 10/30/2024 Patient: DAYANNA APONTE Sex: Male : 1965 Age: 59y Item Facility Profession Category Description Code al Code Quantity Fee Total Drugs Normal 349751 1 $0.00 $0.00 Saline 1000cc (305125) Nurse/E/M EMERGENCY [id number] 1 $0.00 $0.00 DEPT VISIT HIGH SEVERITYFU [facility] (65781- 25) Nurse/IV/IM/ Drip/IVPB [id number] 1 $0.00 $0.00 Infusions initial (86379) Nurse/IV/IM/ Hydration 124844 1 $0.00 $0.00 Infusions additional hour (49645) 1 of 2 [facility] - DAYANNA APONTE, : 1965, , Nurse/IV/IM/ IVP 594663 3 $0.00 $0.00 Infusions additional push (00921) Grand Total $0.00 Providers Catherine Ahuja D.O. Chief Complaint ABDOMINAL PAIN. Principal Diagnosis Acute periumbilical abdominal pain. Vomiting with nausea and dehydration. Diarrhea. Syncope. Acute gastric ulcer disease. No GI bleeding or perforation. ICD-10 Codes K25.3: Acute gastric ulcer without hemorrhage or perforation R10.33: Periumbilical pain R11.2: Nausea with vomiting, unspecified R19.7: Diarrhea, unspecified R55: Syncope and collapse 2 of 2 [facility] ED VISIT SUMMARYon ED VISIT SUMMARY Visit Overview - DAYANNA APONTE, : 1965, , Visit [address] [address] [id number] 10/30/2024 Patient: DAYANNA APONTE Sex: Male : 1965 Age: 59y 11/02/2024 02:17 AM EDT ED Arrival:05:54 10/30/2024 Status: Recent Travel:no EDT Language:eng Adv Directive: Isolation Status: Infectious Disease Ethnicity:N Fall Risk:no risk Exposure:no Measurements:5'10 / Self-Harm Status:risk Sepsis Screen:negative 177.8 cm 175.0 lb / 79.4 kg Chief Complaint:ABDOMINAL PAIN, DIARRHEA, NAUSEA, VOMITING, and (Brown ) ALLERGIES No Known Drug Allergies HOME MEDICATIONS no home medications 1 of 4 Visit Overview - DAYANNA APONTE, : 1965, , PAST MEDICAL HISTORY / PROBLEMS None See nurses notes PAST SURGICAL HISTORY Orchiopexy Tonsillectomy SOCIAL HISTORY Smoking status: No Alcohol use: No Drug use: No ED COURSE MEDICATIONS GIVEN IN EMERGENCY DEPARTMENT 06:11 10/30/24 Ondansetron IVP 4 mg CefTRIAXone (Rocephin) IVPB 2gm/50ml NS 2 g 06:12 10/30/24 diluted in sodium chloride IVPB 0.9 % Minibag+ 50 mL 100 mL/hr 06:13 10/30/24 IV NS 0.9 % 1000 mL 999 mL/hr 07:28 10/30/24 GI Cocktail PO 08:12 10/30/24 HYDROmorphone (Dilaudid) IVP 0.5 mg 09:17 10/30/24 Pantoprazole (Protonix) IVP 40 mg IV SITE INFORMATION 06:07 10/30/24 Site #1 left AC, 18g. Saline lock. INTAKE OUTPUT REASSESMENT (most recent) 10:06 10/30/24. ( report given to nurse jolanta on med/surg). VITAL SIGNS First Vitals Last Vitals 2 of 4 Visit Overview - DAYANNA APONTE, : 1965, , Temp 05:57 10/30/24 Temp 10:10/30/24 BP 05:57 10/30/24 127/78 BP 10:10/30/24 HR 05:57 10/30/24 57 HR 10:10/30/24 RR 05:57 10/30/24 RR 10:10/30/24 17 O2 Sat 05:57 10/30/24 O2 Sat 10:10/30/24 Pain 05:57 10/30/24 Pain 10:21 10/30/24 ETCO2 05:57 10/30/24 ETCO2 10:21 10/30/24 GCS 05:57 10/30/24 GCS 10:21 10/30/24 RTS 05:57 10/30/24 RTS 10:21 10/30/24 PROCEDURES NURSING INTERVENTIONS LABS / STUDIES LABS / STUDIES ORDERED Blood Culture [Randi] # 1 Blood Culture [Randi] # 2 C Diff Complete CBC w Diff CMP CRP CT ABD/PEL w Cont CT Brain wo Cont CT C-Spine wo Cont CT Chest PE Study EKG - ED Flu Swab (Influenzae AAg) hospitalist please Lactate, Serum Lipase Rapid COVID (SARS) ANTIGEN TEST Stool Culture [RANDI] Troponin-I Protocol (STAT 1hr) Troponin-I Protocol (STAT 1hr) Urinalysis 3 of 4 Visit Overview - APONTEDAYANNA LOJA, : 1965, , CLINICAL IMPRESSION ACUTE GASTRIC ULCER DISEASE. NO GI BLEEDING OR PERFORATION ACUTE PERIUMBILICAL ABDOMINAL PAIN DIARRHEA SYNCOPE VOMITING WITH NAUSEA AND DEHYDRATION 4 of 4 Normal [facility] ED VITALS FLOW SHEETon 11-02 ED VITALS FLOW SHEET Vitals - ELOY APONTE D, : 1965, , Vital Sign Flow Sheet [address] [address] [id number] 10/30/2024 Patient: DAYANNA APONTE Sex: Male : 1965 Age: 59y Measurements Wt: 79.4 kg, Ht/Kee: 70.0 in, BMI: 25.11 Measured Rachel Time BP MAP HR RR O2Sat ETCO2 Temp n GCS RTS 10:21 17 10/30/2024 10:16 56 16 91% 10/30/2024 10:12 91/55 65 60 10/30/2024 10:11 56 17 91% 10/30/2024 10:06 57 15 90% 10/30/2024 10:01 53 12 91% 10/30/2024 09:56 97/55 71 58 10/30/2024 09:56 61 16 92% 10/30/2024 1 of 6 Pradipchris Wilson DAYANNA APONTE, : 1965, , 09:51 55 14 91% 10/30/2024 09:46 55 11 91% 10/30/2024 09:41 97/60 71 57 10/30/2024 09:41 61 17 94% 10/30/2024 09:36 59 10 93% 10/30/2024 09:31 58 16 93% 10/30/2024 09:26 95/62 68 61 10/30/2024 09:26 61 10 94% 10/30/2024 09:21 63 8 92% 10/30/2024 09:16 61 8 93% 10/30/2024 09:11 104/64 75 59 10/30/2024 09:11 62 10 93% 10/30/2024 09:06 55 12 92% 10/30/2024 09:01 57 15 93% 10/30/2024 08:56 102/65 71 53 10/30/2024 2 of 6 DAYANNA Lantigua, : 1965, , 08:56 56 13 93% 10/30/2024 08:51 95/62 73 55 10/30/2024 08:51 58 13 94% 10/30/2024 08:11 124/71 88 55 10/30/2024 08:11 57 15 94% 10/30/2024 08:06 56 15 93% 10/30/2024 08:01 55 12 91% 10/30/2024 07:56 121/80 91 53 10/30/2024 07:56 56 15 96% 10/30/2024 07:51 55 12 97% 10/30/2024 07:46 51 11 98% 10/30/2024 07:41 116/73 87 50 10/30/2024 07:41 51 15 97% 10/30/2024 07:36 56 12 97% 10/30/2024 07:31 57 12 98% 10/30/2024 3 of 6 DAYANNA Lantigua, : 1965, , 07:27 121/69 95 53 10/30/2024 07:26 57 11 98% 10/30/2024 07:21 53 9 96% 10/30/2024 07:17 60 97% 10/30/2024 07:16 149/85 96 61 10/30/2024 07:16 52 12 97% 10/30/2024 07:11 127/83 97 52 10/30/2024 07:11 57 12 98% 10/30/2024 07:06 56 11 97% 10/30/2024 07:06 120/74 89 56 10/30/2024 (Orthostatic lying) 07:07 121/76 91 55 10/30/2024 (Orthostatic sitting) 07:07 127/79 95 54 10/30/2024 (Orthostatic standing) 07:04 127/79 87 55 10/30/2024 4 of 6 DAYANNA Lantigua, : 1965, , 07:03 121/76 87 59 10/30/2024 07:01 120/74 92 55 10/30/2024 07:01 59 14 96% 10/30/2024 06:57 120/81 95 59 10/30/2024 06:56 60 15 95% 10/30/2024 06:49 60 11 98% 10/30/2024 06:44 62 9 92% 10/30/2024 06:41 116/73 88 56 10/30/2024 06:39 56 10 91% 10/30/2024 06:34 58 10 92% 10/30/2024 06:29 73 16 98% 10/30/2024 06:26 117/77 89 58 10/30/2024 06:22 56 12 95% 10/30/2024 06:17 61 11 97% 10/30/2024 06:12 58 9 98% 10/30/2024 5 of 6 DAYANNA Lantigua, : 1965, , 06:11 123/81 95 58 10/30/2024 06:07 57 11 95% 10/30/2024 06:02 56 97% 10/30/2024 06:01 14 97.9 F 6 10/30/2024 05:57 57 97% 10/30/2024 05:57 127/78 87 57 10/30/2024 6 of 6 Normal [facility] C-REACTIVE PROTEINon 025 CRP 0.27 mg/dl Normal 0.00 - 0.90 [facility] Comment on above: Performed By: #### 2 [id number] #### [facility],[address] [place] [address] 29334 CBC + DIFFon 10-30-2024 Baso # 0.02 x10EE3/UL Normal 0.00 - 0.[address] [facility] Comment on above: Performed By: #### 2 56119 #### [facility],[address] [place] [address] 12931 Basophils/100 WBC (Bld) 0.2 % Normal 0.0 - 2.0 [facility] Comment on above: Performed By: #### 2 55017 #### [facility],[address] [place] [address] 61546 CBC + DIFF Normal [facility] Comment on above: Result Comment: CBC- COMPLETE BLOOD COUNT Performed By: #### 2 51626 #### [facility],[address] [place] [address] 50246 EO # 0.16 x10EE3/UL Normal 0.00 - 0.[address] [facility] Comment on above: Performed By: #### 2 18645 #### [facility],[address] [place] [address] 00479 Eosinophils/100 WBC (Bld) 1.5 % Normal 0.0 - 7.0 [facility] Comment on above: Performed By: #### 2 74495 #### [facility],[address] [place] [address] 01893 Erythrocyte distribution width (RBC) [Ratio] 13.3 % Normal 12.0 - 15.6 [facility] Comment on above: Performed By: #### 2 35140 #### [facility],[address] [place] [address] 18508 Hematocrit (Bld) [Volume fraction] 50.9 % Normal 40.0 - 52.0 [facility] Comment on above: Performed By: #### 2 58461 #### [facility],[address] [place] [address] 31035 Hemoglobin (Bld) [Mass/Vol] 17.2 g/dL Normal 13.0 - 17.5 [facility] Comment on above: Performed By: #### 2 11349 #### [facility],[address] [place] [address] 73586 Lymph # 1.75 x10EE3/UL Normal 0.80 - 2.[address] [facility] Comment on above: Performed By: #### 2 98560 #### [facility],[address] [place] [address] 35429 Lymphocytes/100 WBC (Bld) 16.2 % Low 20.0 - 45.0 [facility] Comment on above: Performed By: #### 2 24050 #### [facility],[address] [place] [address] 89215 MANUAL DIFF N/A Normal [facility] Comment on above: Performed By: #### 2 20917 #### [facility],[address] [place] [address] 66786 MCH (RBC) [Entitic mass] 30 pg Normal 27 - 33 [facility] Comment on above: Performed By: #### 2 26983 #### [facility],[address] [place] [address] 33643 MCHC 34 X10 3 Normal 32 - 36 [facility] Comment on above: Performed By: #### 2 70800 #### [facility],[address] [place] [address] 53903 MCV (RBC) [Entitic vol] 88 fL Normal 81 - 98 [facility] Comment on above: Performed By: #### 2 85252 #### [facility],[address] [place] [address] 47950 Otero # 0.66 x10EE3/UL Normal 0.20 - 1.[address] [facility] Comment on above: Performed By: #### 2 42164 #### [facility],[address] [place] [address] 37369 MONOS % 6.2 % Normal 0.0 - 10.0 [facility] Comment on above: Performed By: #### 2 74490 #### [facility],[address] [place] [address] 61427 Morphology Henrry (Bld) [Interp] N/A Normal [facility] Comment on above: Performed By: #### 2 54525 #### [facility],[address] [place] [address] 71770 Neut # 8.20 x10EE3/UL High 1.50 - 7.[address] [facility] Comment on above: Performed By: #### 2 27893 #### [facility],[address] [place] [address] 74496 Neutrophils/100 WBC (Bld) 76.0 % Normal 46.0 - 76.0 [facility] Comment on above: Performed By: #### 2 57315 #### [facility],[address] [place] [address] 94752 PLATELET 352 x10EE3/UL Normal 150 - 450 [facility] Comment on above: Performed By: #### 2 24517 #### [facility],[address] [place] [address] 16629 Platelet mean volume (Bld) [Entitic vol] 7.5 fL Normal 6.4 - 10.5 [facility] Comment on above: Result Comment: AUTO MATED DIFFERENTIAL Performed By: #### 2 78744 #### [facility],[address] [place] [address] 54954 RBC 5.79 x 10EE6/UL Normal 4.50 - 6.00 [facility] Comment on above: Performed By: #### 2 58542 #### [facility],[address] [place] [address] 90099 WBC 10.8 x 10EE3/UL Normal 4.5 - 10.[address] [facility] Comment on above: Performed By: #### 2 96136 #### [facility],[address] [place] [address] 24512 CMP with eGFRon 10-30-2024 AGE 59 years Normal [facility] Comment on above: Performed By: #### 2 86114 #### [facility],[address] [place] [address] 04147 Albumin [Mass/Vol] 4.4 g/dL Normal 3.4 - 5.0 [facility] Comment on above: Performed By: #### 2 04205 #### [facility],[address] [place] [address] 67888 Albumin/Globulin [Mass ratio] 1.8 {ratio} High 0.9 - 1.6 [facility] Comment on above: Performed By: #### 2 81724 #### [facility],[address] [place] [address] 22510 ALK PHOS 99 U/L Normal 46 - 116 [facility] Comment on above: Performed By: #### 2 46872 #### [facility],[address] [place] [address] 70102 ALT [Catalytic activity/Vol] 25 U/L Normal 16 - 63 [facility] Comment on above: Performed By: #### 2 36807 #### [facility],[address] [place] [address] 28991 Anion gap [Moles/Vol] 19 mmol/L Normal 10 - 20 [facility] Comment on above: Performed By: #### 2 22558 #### [facility],[address] [place] [address] 67600 AST [Catalytic activity/Vol] 17 U/L Normal 15 - 37 [facility] Comment on above: Performed By: #### 2 56984 #### [facility],[address] [place] [address] 76009 B/C RATIO 18 ratio Normal 0 - 30 [facility] Comment on above: Performed By: #### 2 59175 #### [facility],[address] [place] [address] 15165 Bilirubin [Mass/Vol] 0.9 mg/dL Normal 0.2 - 1.0 [facility] Comment on above: Performed By: #### 2 28637 #### [facility],[address] [place] [address] 07992 Calcium [Mass/Vol] 8.7 mg/dL Normal 8.5 - 10.1 [facility] Comment on above: Performed By: #### 2 75096 #### [facility],[address] [place] [address] 77881 Chloride [Moles/Vol] 100 mmol/L Normal 98 - 107 [facility] Comment on above: Performed By: #### 2 58802 #### [facility],[address] [place] [address] 80699 CMP with eGFR Normal [facility] Comment on above: Result Comment: COMP REHENSIVE METABOLIC PANEL Performed By: #### 2 15896 #### [facility],[address] [place] [address] 67034 CO2 [Moles/Vol] 22.9 mmol/L Normal 21.0 - 32.0 [facility] Comment on above: Performed By: #### 2 17362 #### [facility],[address] [place] [address] 08435 Creatinine [Mass/Vol] 0.77 mg/dL Normal 0.70 - 1.30 [facility] Comment on above: Performed By: #### 2 40647 #### [facility],[address] [place] [address] 81395 GFR/1.73 sq M.predicted among non-blacks MDRD (S/P/Bld) [Vol rate/Area] mL/min/{1.73_m2} Normal 60 - 999 [facility] Comment on above: Performed By: #### 2 25776 #### [facility],[address] [place] [address] 09687 Result Comment: ACCO RDING TO THE NATIONAL KIDNEY DISEASE EDUCATION PROGRAM(NKDE), A NORMAL eGFR IS A VALUE GREATER THAN OR EQUAL TO 60 ML/MIN/1.73 SQ METERS. CHRONIC KIDNEY DISEASE: <60mL/MIN/1.73 SQ METERS KIDNEY FAILURE: <15mL/MIN/1.73 SQ METERS THIS TEST SHOULD ONLY BE USED FOR PATIENTS 18 YEARS OF AGE AND OLDER. Globulin (S) [Mass/Vol] 2.5 g/dL Normal 1.5 - 3.8 [facility] Comment on above: Performed By: #### 2 61439 #### [place] [id number] Glucose [Mass/Vol] 114 mg/dL High 74 - 106 [facility] Comment on above: Performed By: #### 2 24388 #### [facility],[address] [place] [address] 88959 Potassium [Moles/Vol] 3.4 mmol/L Low 3.5 - 5.1 [facility] Comment on above: Performed By: #### 2 14523 #### [facility],[address] [place] [address] 19048 Protein [Mass/Vol] 6.9 g/dL Normal 6.4 - 8.2 [facility] Comment on above: Performed By: #### 2 97078 #### [address] [address] Sodium [Moles/Vol] 138 mmol/L Normal 136 - 145 [facility] Comment on above: Performed By: #### 2 30695 #### [address] [address] Urea nitrogen [Mass/Vol] 14 mg/dL Normal 7 - 18 [facility] Comment on above: Performed By: #### 2 62118 #### [address] [address] CORONAVIRUS (SARS) ANTIGEN T Ramone 10-30-2024 EXTERNAL QC DONE? YES Normal [facility] Comment on above: Performed By: #### 2 42294 #### [facility],[address] [place] [address] INTERNAL CONTROL PASS Normal [facility] Comment on above: Performed By: #### 2 86078 #### [facility],[address] [place], [place] [id number] SARS ANTIGEN Negative Normal NORMAL: NEGATIVE [facility] Comment on above: Performed By: #### 2 60500 #### [facility],[address] [place] [address] SEND TO ? NO Normal [facility] Comment on above: Result Comment: SARS -CoV-2 THIS TEST IS BEING USED UNDER THE FDA EUA PROCEDURE. THIS ASSAY HAS BEEN VALIDATED AT [facility] FOR USE WITH NASAL AND NASOPHARYNGEAL SWAB SPECIMENS. INTERPRETIVE DATA TEST RESULTS SHOULD ALWAYS BE CONSIDERED IN THE CONTEXT OF CLINICAL OBSERVATIONS AND EPIDEMIOLOGICAL DATA IN MAKING FINAL DIAGNOSIS AND PATIENT MANAGEMENT DECISIONS. PATIENT MANAGEMENT SHOULD FOLLOW CURRENT CDC GUIDELINES. THE JORGE LUIS SARS ANTIGEN DONOVAN DOES NOT DIFFERENTIATE BETWEEN SARS-CoV & SARS-CoV-2. A POSITIVE TEST RESULT INDICATES THE PRESENCE OF SARS-CoV-2 NUCLEOCAPSID PROTEIN ANTIGEN, AND THE PATIENT IS INFECTED WITH THE VIRUS AND PRESUMED TO BE CONTAGIOUS. A NEGATIVE TEST RESULT FOR THIS TEST MEANS THAT SARS-CoV-2 NUCLEOCAPSID PROTEIN ANTIGEN WAS NOT PRESENT IN THE SPECIMEN ABOVE THE LIMIT OF DETECTION. HOWEVER, A NEGATIVE RESULT DOES NOT RULE OUT COVID-19 AND SHOULD NOT BE USED THE SOLE BASIS FOR TREATMENT OR PATIENT MANAGEMENT DECISIONS. A NEGATIVE RESULT DOES NOT EXCLUDE THE POSSIBILITY OF COVID-19. NEGATIVE RESULTS, FROM PATIENTS WITH SYMPTOM ONSET BEYOND FIVE DAYS, SHOULD BE TREATED PRESUMPTIVE AND CONFIRMATION WITH A MOLECULAR ASSAY, IF NECESSARY, FOR PATIENT MANAGEMENT, MAY BE PERFORMED. WHEN DIAGNOSTIC TESTING IS NEGATIVE, THE POSSIBLILTY OF A FALSE NEGATIVE RESULT SHOULD BE CONSIDERED IN THE CONTEXT OF A PATIENT'S RECENT EXPOSURES AND THE PRESENCE OF CLINICAL SIGNS AND SYMPTOMS CONSISTENT WITH COVID-19. THE POSSIBILITY OF A FALSE NEGATIVE RESULT SHOULD ESPECIALLY BE CONSIDERED IF THE PATIENT'S RECENT EXPOSURES OR CLINICAL PRESENTATION INDICATE THAT COVID-19 IS LIKELY, AND DIAGNOSTIC TESTS FOR OTHER CAUSES OF ILLNESS (e.g., OTHER RESPIRATORY ILLNESS) ARE NEGATIVE. IF COVID-19 IS STILL SUSPECTED BASED ON EXPOSURE HISTORY TOGETHER WITH OTHER CLINICAL FINDINGS, RE-TESTING SHOULD BE CONSIDERED BY HEALTHCARE PROVIDERS IN CONSULTATION WITH PUBLIC HEALTH AUTHORITIES. Performed By: #### 2 [id number] #### [facility],[address] [place] [address] CT ABDOMEN/PELVIS [facility] 2024 CT ABDOMEN/PELVIS [place] [id number] Patient: DAYANNA APONTE Phone#: : 1965 Age: 59 Gender: M Pt. Type: ER Account: [id number] Location: [facility] Ordering: CATHERINE HAUJA Exam Date: 10/30/2024/6:36 Family Phys: Charge Code: [id number] Physician: Meeker Order #: [id number] Dose#: 18.0 PROCEDURE: CT ABDOMEN/PELVIS WITH CONTRAST COMPARISON: [facility], CT, ABDOMEN/PELVIS W CON, 05/15/2020, 8:12. INDICATIONS: Pain. TECHNIQUE: After obtaining the patient's consent, CT images were created with non-ionic intravenous contrast material. All CT scans at this facility use dose modulation, iterative reconstruction, and/or weight based dosing when appropriate to reduce radiation dose to as low as reasonably achievable. IV CONTRAST: Omnipaque 350,100ml TOTAL DOSE: 8.30 CTDIvol(mGy) FINDINGS: Study limited by artifact from the patient's arms at their side during the exam. LIVER: Normal. No enlargement, atrophy, abnormal density, or significant focal lesion. BILIARY: Gallbladder is present. PANCREAS: Pancreatic atrophy SPLEEN: Normal. No enlargement or focal lesion. KIDNEYS: Kidneys enhance and excrete contrast symmetrically. No hydronephrosis ADRENALS: Normal. No mass or enlargement. AORTA/VASCULAR: No aortic aneurysm. The splenic artery arises directly from the aorta, normal variant. RETROPERITONEUM: Normal. No mass or adenopathy. BOWEL/MESENTERY: There appears to be focal thickening of the gastric wall, series 6, image 30. The appearance persists on delayed phase. No bowel obstruction or dilatation no significant stool burden. Mild thickening at the ascending colon. High dense material in the stomach, recommend correlation for ingested material. The appendix is unremarkable in size and contains air. ABDOMINAL WALL: Small fat containing right inguinal hernia. URINARY BLADDER: Urinary bladder is partially filled. The wall may be mildly thickened. Continued Report - Page 2 of 2 Patient: DAYANNA APONTE Phone#: : 1965 Age: 59 Gender: M Pt. Type: ER Account: [id number] Location: 052 Ordering: CATHERINE AHUJA Exam Date: 10/30/2024/6:36 Family Phys: Charge Code: [id number] Physician: Meeker Order #: [id number] Dose#: 18.0 PELVIC NODES: Normal. No adenopathy. PELVIC ORGANS: Normal. No visible mass. Pelvic organs appropriate for patient age. BONES: Disc height loss at L4-5 LUNG BASES: Normal. No visible pulmonary or pleural disease. OTHER: Negative. CONCLUSION: 1. Focal thickening of the distal gastric wall. Recommend correlation for gastritis versus peptic ulcer disease. 2. Bladder wall appears mildly thickened, correlate for underdistention versus cystitis. 3. Mild thickening of the ascending colon, suspicious for mild colitis. Dictated by: Sophie Mckeon MD on 10/30/2024 at 8:50 Approved by: Sophie Mckeon MD on 10/30/2024 at 9:00 Normal [facility] CT BRAIN W/O CONTRASTon - CT BRAIN W/O CONTRAST [place] [address] Patient: DAYANNA APONTE Phone#: : 1965 Age: 59 Gender: M Pt. Type: ER Account: [id number] Location: 052 Ordering: CATHERINE AHUJA Exam Date: 10/30/2024/6:29 Family Phys: Charge Code: [id number] Physician: Meeker Order #: [id number] Dose#: 52.3 PROCEDURE: CT BRAIN WITHOUT CONTRAST COMPARISON: None. INDICATIONS: Headache. TECHNIQUE: CT images were obtained without contrast material. All CT scans at this facility use dose modulation, iterative reconstruction, and/or weight based dosing when appropriate to reduce radiation dose to as low as reasonably achievable. IV CONTRAST: No IV contrast used,0ml TOTAL DOSE: 52.3 CTDIvol(mGy) FINDINGS: CEREBRUM: No edema, hemorrhage, mass, or inappropriate atrophy. CEREBELLUM: No edema, hemorrhage, mass, or inappropriate atrophy. BRAINSTEM: No edema, hemorrhage, mass, or inappropriate atrophy. CSF SPACES: Lateral and 3rd ventricles are enlarged. No appreciable obstructing lesion. SKULL: No mass or other significant visible lesion. SINUSES: Limited views demonstrate no significant mucosal thickening or fluid. ORBITS: Limited views are unremarkable. OTHER: Negative. CONCLUSION: 1. Ventriculomegaly of the lateral and 3rd ventricles. No obstructing lesion or cerebral atrophy. Differential includes but is not limited to normal pressure hydrocephalus. Recommend neurology follow-up. Dictated by: Sophie Mckeon MD on 10/30/2024 at 8:12 Approved by: Sophie Mckeon MD on 10/30/2024 at 8:24 Normal [facility] CT CERVICAL W/O CONTRASTon 0 10-30-2024 CT CERVICAL W/O CONTRAST [place] [address] Patient: DAYANNA APONTE Phone#: : 1965 Age: 59 Gender: M Pt. Type: ER Account: [id number] Location: 052 Ordering: CATHERINE AHUJA Exam Date: 10/30/2024/6:29 Family Phys: Charge Code: [id number] Physician: Meeker Order #: [id number] Dose#: 52.3 PROCEDURE: CT CERVICAL WITHOUT CONTRAST COMPARISON: None. INDICATIONS: Trauma. TECHNIQUE: Multi-planar CT images were created without intravenous contrast. All CT scans at this facility use dose modulation, iterative reconstruction, and/or weight-based dosing when appropriate to reduce radiation dose to as low as reasonably achievable. IV CONTRAST: No IV contrast used,0ml TOTAL DOSE: 52.3 CTDIvol(mGy) FINDINGS: CRANIOCERVICAL AREA: Normal foramen magnum with no Chiari malformation. PARASPINAL AREA: Normal with no visible mass. BONES: Vertebral bodies are maintained in height. There is grade 1 anterolisthesis of C7 on T1. Dens is intact. Lateral masses are symmetric. OTHER: Atherosclerotic calcifications of the cavernous carotid arteries CERVICAL DISC LEVELS: C2-C3: Disc height loss and facet arthropathy contributes to moderate bilateral osseous foraminal narrowing C3-C4: No significant disc/facet abnormality, spinal stenosis, or foraminal stenosis. C4-C5: Disc height loss and facet arthropathy contributes to severe left and mild right osseous foraminal narrowing C5-C6: Disc height loss and uncovertebral hypertrophy contributes to moderate bilateral osseous foraminal narrowing C6-C7: Disc height loss and uncovertebral hypertrophy contributes to severe right osseous foraminal narrowing C7-T1: Grade 1 anterolisthesis, disc height loss and facet arthropathy contributes to severe bilateral osseous foraminal narrowing CONCLUSION: Continued Report - Page 2 of 2 Patient: DAYANNA APONTE Phone#: : 1965 Age: 59 Gender: M Pt. Type: ER Account: [id number] Location: [facility] Ordering: CATHERINE AHUJA Exam Date: 10/30/2024/6:29 Family Phys: Charge Code: [id number] Physician: Meeker Order #: [id number] Dose#: 52.3 1. No acute osseous abnormality 2. Multilevel degenerative changes resulting in varying degrees of osseous foraminal narrowing Dictated by: Sophie Mckeon MD on 10/30/2024 at 8:24 Approved by: Sophie Mckeon MD on 10/30/2024 at 8:28 Normal [facility] CT CHEST (PE PROTOCOL)on CT CHEST (PE PROTOCOL) [address] [address] Patient: DAYANNA APONTE Phone#: : 1965 Age: 59 Gender: M Pt. Type: ER Account: [id number] Location: 052 Ordering: CATHERINE AHUJA Exam Date: 10/30/2024/6:36 Family Phys: Charge Code: [id number] Physician: Meeker Order #: [id number] Dose#: 8.30 PROCEDURE: CT CHEST WITH CONTRAST FOR PE COMPARISON: None. INDICATIONS: Weakness. TECHNIQUE: After obtaining the patient's consent, CT images were obtained with non-ionic intravenous contrast material. Multi-planar images were created to optimize visualization of vascular anatomy with MPR/MIPS and 3D imaging. All CT scans at this facility use dose modulation, iterative reconstruction, and/or weight based dosing when appropriate to reduce radiation dose to as low as reasonably achievable. IV CONTRAST: Omnipaque 350,100ml TOTAL DOSE: 8.30 CTDIvol(mGy) FINDINGS: VASCULATURE: Suboptimal contrast opacification limits evaluation. No appreciable pulmonary embolism in the main or proximal pulmonary arteries. Nondiagnostic evaluation of the branch pulmonary arteries. AORTA: No aortic aneurysm LUNGS: Dependent changes ISAI: Normal. No mass or adenopathy. MEDIASTINUM: Normal. No mass or adenopathy. CARDIAC: Normal. No enlargement, pericardial thickening, or significant calcification. PLEURA: Normal. No mass or effusion. CHEST WALL: Normal. No mass or axillary adenopathy. LIMITED ABDOMEN: Normal. Limited images of the upper abdomen are unremarkable. BONES: Normal. No bony lesion or fracture. OTHER: Negative. CONCLUSION: 1. Suboptimal contrast opacification, no pulmonary embolism in the main or proximal pulmonary arteries. Limited evaluation of the branch pulmonary arteries. No acute pulmonary parenchymal abnormality. [place] [address] Patient: DAYANNA APONTE Phone#: : [phone] Age: 59 Gender: M Pt. Type: ER Account: [id number] Location: [id number] Ordering: CATHERINE AHUJA Exam Date: 10/30/2024/6:36 Family Phys: Charge Code: [id number] Physician: [place] Order #: [id number] Dose#: [id number] Dictated by: Sophie Mckeon MD on 10/30/2024 at 8:28 Approved by: Sophie Mckeon MD on 10/30/2024 at 8:50 Normal [facility] CULTURE BLOOD [RANDI]on Microscopic examination of blood, culture CULTURE BLOOD [RANDI] _BLOOD CULTURE_ [facility] REPORTS AND ATTACHMENTS FOR SCANNED REPORT 11/05/[email or web address] Normal [facility] Comment on above: Performed By: #### 2 [id number] #### [facility],[address] [place], [place] [id number] Performed By: #### 2 21458 #### [facility],[address] [place], [place] [id number] INFLUENZA VIRUS RAPID A/Bon 10-30-2024 INFLUENZA VIRUS RAPID A/B INFLUENZA A NEGATIVE INFLUENZA B NEGATIVE INTERNAL NEG QC PASS INTERNAL POS QC PASS EXTERNAL QC DONE? YES SEND TO IC? NO A NEGATIVE TEST RESULT DOES NOT EXCLUDE INFECTION WITH INFLUENZA A OR B. THEREFORE, THE RESULTS OBTAINED FROM THIS FLU TEST SHOULD BE USED IN CONJUCTION WITH CLINICAL FINDINGS TO MAKE AN ACCURATE DIAGNOSIS. A POSITIVE RESULT DOES NOT RULE OUT CO-INFECTIONS WITH OTHER PATHOGENS OR IDENTIFY ANY SPECIFIC INFLUENZA A VIRUS SUBTYPE.CO-INFECTION WITH INFLUENZA A AND B IS RARE. IT IS RECOMMENDED THAT DUAL POSITIVE RESULTS BE CONFIRMED BY VIRAL CULTURE OR AN FDA-CLEARED INFLUENZA A AND B MOLECULAR ASSAY. INDIVIDUALS WHO HAVE RECEIVED NASALLY ADMINISTERED INFLUENZA A VACCINE MAY TEST POSITIVE IN COMMERCIALLY AVAILABLE INFLUENZA RAPID DIAGNOSTIC TESTS FOR UP TO THREE DAYS. RESULT CRITICAL? NO Normal [facility] Comment on above: Performed By: #### 2 18778 #### [address] [address] LACTATEon 10-30-2024 Lactate [Moles/Vol] 0.9 mmol/L Normal 0.4 - 2.0 [facility] Comment on above: Performed By: #### 2 35499 #### [facility],[address] [place] [address] LIPASEon 10-30-2024 Lipase [Catalytic activity/Vol] 22.0 U/L Normal 15.0 - 78.0 [facility] Comment on above: Result Comment: *PLE ASE NOTE THAT RANGES FOR LIPASE HAVE CHANGED OF 02/11/23 DUE TO AN ASSAY UPDATE BY THE POWER BENDER OPERATOR.THE NEW ASSAY RANGE IS 6-250 U/L, WITH A REFERENCE RANGE OF 16-77 U/L. Performed By: #### 2 91345 #### [facility],[address] [place] [address] TROPONINon 10-30-2024 HS TROPONIN 5.7 pg/mL Normal 0.0 - 76.2 [facility] Comment on above: Performed By: #### 2 39319 #### [place] [address] HS TROPONIN 5.9 pg/mL Normal 0.0 - 76.2 [facility] Comment on above: Performed By: #### 2 62278 #### [place] [id number] URINALYSISon 10-30-2024 Bilirubin Ql (U) Negative Normal NORMAL: NEGATIVE [facility] Comment on above: Performed By: #### 2 57705 #### [facility],[address] [place] [address] Clarity (U) clear Normal NORMAL: CLEAR [facility] Comment on above: Performed By: #### 2 17466 #### [address] [address] Color (U) yellow Normal NORMAL: YELLOW [facility] Comment on above: Performed By: #### 2 59892 #### [facility],[address] [place] [address] Glucose Ql (U) NORM Normal NORMAL: NORMAL [facility] Comment on above: Performed By: #### 2 35305 #### [facility],[address] [place] [address] Hemoglobin Ql (U) Negative Normal NORMAL: NEGATIVE [facility] Comment on above: Performed By: #### 2 52786 #### [facility],[address] [place] [address] Ketone 150 Abnormal NORMAL: NEGATIVE [facility] Comment on above: Performed By: #### 2 84135 #### [facility],[address] [place] [address] Leukocytes Negative Normal NORMAL: NEGATIVE [facility] Comment on above: Performed By: #### 2 66335 #### [facility],[address] [place] [address] Nitrite Ql (U) Negative Normal NORMAL: NEGATIVE [facility] Comment on above: Performed By: #### 2 39649 #### [facility],[address] [place] [address] pH (U) 6 [pH] Normal NORMAL: 5.0-8.0 [facility] Comment on above: Performed By: #### 2 14157 #### [facility],[address] [place] [address] Protein Ql (U) 30 Abnormal NORMAL: NEGATIVE [facility] Comment on above: Performed By: #### 2 92680 #### [facility],[address] [place] [address] Sp [place] 1.010 Normal NORMAL: 1.010-1.030 [facility] Comment on above: Performed By: #### 2 14854 #### [facility],[address] [place] [address] Specimen Type R Normal [facility] Comment on above: Performed By: #### 2 24793 #### [facility],[address] [place] [address] Urinalysis dipstick W Reflex Microscopic panel (U) NOT INDICATED Normal [facility] Comment on above: Performed By: #### 2 89182 #### [facility],[address] [place] [address] Urobilinog NORM Normal NORMAL: NORMAL [facility] Comment on above: Performed By: #### 2 05955 #### [facility],[address] [place] [address] COMPREHENSIVE METABOLIC PANE [facility] 06-16-2023 Albumin [Mass/Vol] 4.8 g/dL Normal 3.6-5.1 [facility] Comment on above: Performed By: #### 5 363, 08604, 7600 #### [facility] of [address], [address] [place] [address] Intake Manager: Sterling Shaw MD Albumin/Globulin [Mass ratio] 2.1 {ratio} Normal 1.0-2.5 [facility] Comment on above: Performed By: #### 5 363, 96247, 7600 #### [facility] of [place] [address] Intake Manager: Sterling Shaw MD ALP [Catalytic activity/Vol] 78 U/L Normal 35-144 [facility] Comment on above: Performed By: #### 5 363, 07614, 7600 #### [facility] of [address], [address] [place] [address] Intake Manager: Sterling Shaw MD ALT [Catalytic activity/Vol] 20 U/L Normal 9-46 [facility] Comment on above: Performed By: #### 5 363, 79933, 7600 #### [facility] of [address], [address] [place] [address] Intake Manager: Sterling Shaw MD AST [Catalytic activity/Vol] 16 U/L Normal 10-35 [facility] Comment on above: Performed By: #### 5 363, 82281, 7600 #### [facility] of [place] [address] Intake Manager: Sterling Shaw MD Bilirubin [Mass/Vol] 0.6 mg/dL Normal 0.2-1.2 [facility] Comment on above: Performed By: #### 5 363, 95090, 7600 #### [facility] of [address], [address] [place], [place] [address] Intake Manager: Sterling Shaw MD BUN/CREATININE RATIO SEE NOTE: Normal 6-22 [facility] Comment on above: Result Comment: Not Reported: BUN and Creatinine are within reference range. Performed By: #### 5 363, 72017, 7600 #### [facility] [address], [address] [place] [address] Intake Manager: Sterling Shaw MD Calcium [Mass/Vol] 9.8 mg/dL Normal 8.6-10.3 [facility] Comment on above: Performed By: #### 5 363, 73210, 7600 #### [facility] [address], [address] [place] [address] Intake Manager: Sterling Shaw MD Chloride [Moles/Vol] 106 mmol/L Normal 98-110 [facility] Comment on above: Performed By: #### 5 363, 84662, 7600 #### [facility] [address], [address] [place] [address] Intake Manager: Sterling Shaw MD CO2 [Moles/Vol] 28 mmol/L Normal 20-32 [facility] Comment on above: Performed By: #### 5 363, 56989, 7600 #### [facility] [address], [address] [place] [address] Intake Manager: Sterling Shaw MD Creatinine [Mass/Vol] 1.01 mg/dL Normal 0.70-1.30 [facility] Comment on above: Performed By: #### 5 363, 38150, 7600 #### [facility] of [address], [address] [place] [address] Intake Manager: Sterling Shaw MD GFR/1.73 sq M.predicted among non-blacks MDRD (S/P/Bld) [Vol rate/Area] 88 mL/min/{1.73_m2} Normal > OR = 60 [facility] Comment on above: Performed By: #### 5 363, 14224, 7600 #### [facility] of [address], [address] [place] [address] Intake Manager: Sterling Shaw MD Globulin (S) [Mass/Vol] 2.3 g/dL Normal 1.9-3.7 [facility] Comment on above: Performed By: #### 5 363, 00105, 7600 #### [facility] [place] [address] Intake Manager: Sterling Shaw MD Glucose [Mass/Vol] 110 mg/dL High 65-99 [facility] Comment on above: Result Comment: Fasting reference interval For someone without known diabetes, a glucose value between 100 and 125 mg/dL is consistent with prediabetes and should be confirmed with a follow-up test. Performed By: #### 5 363, 28260, 7600 #### [facility] [place] [address] Intake Manager: Sterling Shaw MD Potassium [Moles/Vol] 5.3 mmol/L Normal 3.5-5.[address] [facility] Comment on above: Performed By: #### 5 363, 86311, 7600 #### [facility] [place] [address] Intake Manager: Sterling Shaw MD Protein [Mass/Vol] 7.1 g/dL Normal 6.1-8.1 [facility] Comment on above: Performed By: #### 5 363, 41959, 7600 #### [facility] [place] [address] Intake Manager: Sterling Shaw MD Sodium [Moles/Vol] 144 mmol/L Normal 135-146 [facility] Comment on above: Performed By: #### 5 363, 86751, 7600 #### [facility] [place] [address] Intake Manager: Sterling Shaw MD Urea nitrogen [Mass/Vol] 18 mg/dL Normal 7-25 [facility] Comment on above: Performed By: #### 5 363, 40257, 7600 #### [facility] [place] [address] Intake Manager: Sterling Shaw MD LIPID PANEL, [facility] 05-0 Cholesterol [Mass/Vol] 183 mg/dL Normal <200 [facility] Comment on above: Performed By: #### 5 363, 33391, 7600 #### [facility] [address], [address] [place] [address] Intake Manager: Sterling Shaw MD Cholesterol in HDL [Mass/Vol] 48 mg/dL Normal > OR = 40 [facility] Comment on above: Performed By: #### 5 363, 63935, 7600 #### [facility] [place] [address] Intake Manager: Sterling Shaw MD Cholesterol in LDL [Mass/Vol] 120 mg/dL High [facility] Comment on above: Result Comment: Refe rence range: <100 Desirable range <100 mg/dL for primary prevention; <70 mg/dL for patients with CHD or diabetic patients with > or = 2 CHD risk factors. LDL-C is now calculated using the [place] calculation, which is a validated novel method providing better accuracy than the Friedewald equation in the estimation of LDL-C. Serge SS et al. PATRICIA. 2013;310(19): 6527-0882 (http://education.Respectance.CTMG/faq/FDX855) Performed By: #### 5 363, 72984, 7600 #### [facility] [place] [address] Intake Manager: Sterling Shaw MD Cholesterol.total/Cho lesterol in HDL [Mass ratio] 3.8 {ratio} Normal <5.0 [facility] Comment on above: Performed By: #### 5 363, 62414, 7600 #### [facility] [place] [address] Intake Manager: Sterling Shaw MD NON HDL CHOLESTEROL 135 mg/dL (calc) High <130 [facility] Comment on above: Result Comment: For patients with diabetes plus 1 major ASCVD risk factor, treating to a non-HDL-C goal of <100 mg/dL (LDL-C of <70 mg/dL) is considered a therapeutic option. Performed By: #### 5 363, 21801, 7600 #### [facility] [address], [address] [place] [address] Intake Manager: Sterling Shaw MD Triglyceride [Mass/Vol] 60 mg/dL Normal <150 [facility] Comment on above: Performed By: #### 5 363, 29832, 7600 #### [facility] [address], [address] [place] [address] Intake Manager: Sterling Shaw MD PSA, TOTALon 06-16-2023 PSA, TOTAL 0.43 ng/mL Normal < OR = 4.00 [facility] Comment on above: Result Comment: The total PSA value from this assay system is standardized against the WHO standard. The test result will be approximately 20% lower when compared to the equimolar-standardized total PSA (Sonia [place]). Comparison of serial PSA results should be interpreted with this fact in mind. This test was performed using the Siemens chemiluminescent method. Values obtained from different assay methods cannot be used interchangeably. PSA levels, regardless of value, should not be interpreted as absolute evidence of the presence or absence of disease. Performed By: #### 5 363, 36722, 7600 #### [facility] [address], [address] [place] [address] Intake Manager: Sterling Shaw MD Laboratory - Chemistry and C hemistry - challengeon 06-15-2023 Albumin [Mass/Vol] 4.8 g/dL Normal 3.6 - 5.1 g/dL [facility] [employer] Albumin/Globulin [Mass ratio] 2.1 {ratio} Normal 1.0 - 2.5 Standard [employer] [facility], [facility].; [employer] [facility] ALP [Catalytic activity/Vol] 78 U/L Normal 35 - 144 U/L [facility], [facility].; [employer] [facility] ALT [Catalytic activity/Vol] 20 U/L Normal 9 - 46 U/L [facility], [facility].; [employer] [facility] AST [Catalytic activity/Vol] 16 U/L Normal 10 - 35 U/L [facility], [facility].; [facility] Bilirubin [Mass/Vol] 0.6 mg/dL Normal 0.2 - 1 .2 mg/dL [facility], [facility].; [facility] Calcium [Mass/Vol] 9.8 mg/dL Normal 8.6 - 10. 3 mg/dL [facility], [facility].; [facility] Chloride [Moles/Vol] 106 mmol/L Normal 98 - 11 0 mmol/L [facility], [facility].; [facility] Cholesterol [Mass/Vol] 183 mg/dL Normal [facility], [facility].; [facility] Cholesterol in HDL [Mass/Vol] 48 mg/dL Normal [facility], [facility].; [facility] Cholesterol in LDL [Mass/Vol] 120 mg/dL Abnormal [facility], [facility].; [facility] CO2 [Moles/Vol] 28 mmol/L Normal 20 - 32 mmol/L [facility], [facility].; [facility] Creatinine [Mass/Vol] 1.01 mg/dL Normal 0.70 - 1.30 mg/dL [facility], [facility].; [facility], [facility]. GFR/1.73 sq M.predicted among non-blacks MDRD (S/P/Bld) [Vol rate/Area] 88 mL/min/{1.73_m2} Normal [facility], [facility].; Standard [employer] [facility] Glucose [Mass/Vol] 110 mg/dL Abnormal 65 - 99 mg/dL [facility].; [facility] Potassium [Moles/Vol] 5.3 mmol/L Normal 3.5 - 5.3 mmol/L [facility], [facility].; [facility] Protein [Mass/Vol] 7.1 g/dL Normal 6.1 - 8.1 g/dL [facility], [facility].; [employer] Sodium [Moles/Vol] 144 mmol/L Normal 135 - 146 mmol/L [facility], [facility].; [employer] Triglyceride [Mass/Vol] 60 mg/dL Normal [facility], [facility].; [facility] Urea nitrogen [Mass/Vol] 18 mg/dL Normal 7 - 25 mg/dL [facility]; [facility] No Panel Informationon 06-14 BUN/CREATININE RATIO SEE NOTE: Normal 6 - 22 [facility] [employer] [facility], [facility] CHOL/HDLC RATIO 3.8 Normal [facility]; [facility] GLOBULIN 2.3 Normal 1.9 - 3.7 [facility]; [employer] [facility] NON HDL CHOLESTEROL 135 Abnormal [facility]; [facility] PSA, TOTAL 0.43 ng/mL Normal [facility]; [employer] [facility] Laboratory - Chemistry and C hemistry - challengeon 01-11-2020 Albumin [Mass/Vol] 4.9 g/dL Normal 3.6 - 5.1 g/dL [facility]; [employer] [facility], [facility] Albumin/Globulin [Mass ratio] 2.3 {ratio} Normal 1.0 - 2.5 [facility]; [employer] [facility] ALP [Catalytic activity/Vol] 73 U/L Normal 35 - 144 U/L [facility]; [employer] [facility], [facility]. ALT [Catalytic activity/Vol] 34 U/L Normal 9 - 46 U/L [facility].; [employer], [facility]. AST [Catalytic activity/Vol] 21 U/L Normal 10 - 35 U/L [facility].; [employer] [facility]. Bilirubin [Mass/Vol] 0.6 mg/dL Normal 0.2 - 1 .2 mg/dL [facility].; [employer] [facility], [facility]. Calcium [Mass/Vol] 9.4 mg/dL Normal 8.6 - 10. 3 mg/dL [employer] [facility].; [employer] [facility], [facility]. Chloride [Moles/Vol] 107 mmol/L Normal 98 - 11 0 mmol/L [facility].; [employer] [facility], [facility]. CO2 [Moles/Vol] 22 mmol/L Normal 20 - 32 mmol/L [facility].; [facility], [facility] Creatinine [Mass/Vol] 0.82 mg/dL Normal 0.70 - 1.33 mg/dL [facility], [facility].; [facility], [facility]. CRP [Mass/Vol] 4.0 mg/L Normal [facility].; [facility], [facility] GFR/1.73 sq M.predicted among blacks MDRD (S/P/Bld) [Vol rate/Area] 118 mL/min/{1.73_m2} Normal [facility], [facility] Glucose [Mass/Vol] 96 mg/dL Normal 65 - 99 mg/dL [facility].; [facility], [facility] Potassium [Moles/Vol] 4.0 mmol/L Normal 3.5 - 5.3 mmol/L [facility]; [facility], [facility] Protein [Mass/Vol] 7.0 g/dL Normal 6.1 - 8.1 g/dL [facility].; [facility], [facility] Sodium [Moles/Vol] 141 mmol/L Normal 135 - 146 mmol/L [facility].; [facility], [facility] Urea nitrogen [Mass/Vol] 17 mg/dL Normal 7 - 25 mg/dL [facility]; [facility], [facility] Laboratory - Hematology and Cell counts 01-11-2020 Basophils (Bld) [#/Vol] 0.029 10*3/uL Normal 0 - 200 {cells/uL} [facility].; [facility] Basophils/100 WBC (Bld) 0.5 % Normal [facility].; [facility], [facility]. Eosinophils (Bld) [#/Vol] 0.262 10*3/uL Normal 15 - 500 {cells/uL} [facility].; [facility], [facility]. Eosinophils/100 WBC (Bld) 4.6 % Normal [facility].; [employer] [facility], [facility] Erythrocyte distribution width (RBC) [Ratio] 13.6 % Normal 11.0 - 15.0 % [facility], [facility].; [employer] [facility], [facility] Hematocrit (Bld) [Volume fraction] 47.8 % Normal 38.5 - 50.0 % [facility], [facility].; [facility], [facility]. Hemoglobin (Bld) [Mass/Vol] 16.7 g/dL Normal 13.2 - 17.1 g/dL [facility], [facility].; [facility], [facility]. Lymphocytes (Bld) [#/Vol] 1.773 10*3/uL Normal 850 - 3900 {cells/uL} [facility], [facility].; [facility], [facility]. Lymphocytes/100 WBC (Bld) 31.1 % Normal [facility], [facility].; [facility], [facility]. MCH (RBC) [Entitic mass] 30.9 pg Normal 27.0 - 33.0 pg [facility], [facility].; [facility], [facility]. MCHC (RBC) [Mass/Vol] 34.9 g/dL Normal 32.0 - 36.0 g/dL [facility], [facility].; [facility], [facility]. MCV (RBC) [Entitic vol] 88.5 fL Normal 80.0 - 100.0 fL [facility], [facility].; [facility], [facility]. Monocytes (Bld) [#/Vol] 0.542 10*3/uL Normal 200 - 950 {cells/uL} [facility], [facility].; [facility], [facility]. Monocytes/100 WBC (Bld) 9.5 % Normal [facility], [facility].; [facility], [facility]. Neutrophils (Bld) [#/Vol] 3.095 10*3/uL Normal 1500 - 7800 {cells/uL} [facility], [facility].; [facility] [employer], [facility]. Neutrophils/100 WBC (Bld) 54.3 % Normal [facility], [facility].; [facility], [facility]. Platelet mean volume (Bld) [Entitic vol] 9.7 fL Normal 7.5 - 12.5 fL [facility], [facility].; [facility] Platelets (Bld) [#/Vol] 275 10*3/uL Normal 140 - 400 [facility], [facility].; [facility], [facility] [facility] RBC (Bld) [#/Vol] 5.40 10*6/uL Normal 4.20 - 5.8 0 {Million/uL} [facility]; [facility] [employer] [facility] WBC (Bld) [#/Vol] 5.7 10*3/uL Normal 3.8 - 10.8 [facility]; [employer] No Panel Informationon 01-10 BUN/CREATININE RATIO NOT APPLICABLE Normal 6 - 22 [facility]; [employer] eGFR NON-AFR. [place] 102 Normal [facility]; [employer] GLOBULIN 2.1 Normal 1.9 - 3.7 [facility]; [employer] SED RATE BY MODIFIED WESTERGREN 2 mm/h Normal [facility]; [employer] [facility] Laboratory - Microbiology an d Antimicrobial susceptibilityon 12-04-2018 S. pyogenes Ag EIA Ql (Throat) Negative Normal [facility]; [employer] [facility] - Chemistry and C hemistry - challengeon 04-07-2016 Albumin [Mass/Vol] 4.9 g/dL Abnormal 3.4 - 4.8 g/dL [facility]; [facility] [employer] [facility] Albumin [Mass/Vol] 2.6 g/dL Abnormal 0.9 - 1.6 [facility]; [employer] [facility]. ALP [Catalytic activity/Vol] 65 U/L Normal 38 - 126 U/L [facility].; [employer] [facility], [facility]. ALT [Catalytic activity/Vol] 30 U/L Normal 10 - 40 U/L [facility].; [employer] [facility]. Anion gap [Moles/Vol] 18 mmol/L Normal 10 - 2 0 mmol/L [facility].; [employer] [facility], [facility]. AST [Catalytic activity/Vol] 18 U/L Normal 13 - 39 U/L [facility].; [employer] [facility], [facility]. Bilirubin [Mass/Vol] 0.5 mg/dL Normal 0.0 - 1 .5 mg/dL [facility].; [employer], [employer] Calcium [Mass/Vol] 9.5 mg/dL Normal 8.6 - 10. 2 mg/dL [facility]. Chloride [Moles/Vol] 104 mmol/L Normal 98 - 10 7 mmol/L [facility].; [facility], [facility] CO2 [Moles/Vol] 22.0 mmol/L Normal 21.0 - 31.0 mmol/L [facility].; [facility], [facility] Comprehensive metabolic 2000 panel CMP with eGFR Normal [facility]; [facility], [facility] Creatinine [Mass/Vol] 0.9 mg/dL Normal 0.7 - 1.3 mg/dL [facility].; [facility], [facility]. CRP [Mass/Vol] 0.60 mg/dL Normal 0.00 - 1.00 mg/dL [facility].; [facility], [facility]. GFR/1.73 sq M.predicted among blacks MDRD (S/P/Bld) [Vol rate/Area] mL/min/{1.73_m2} Normal 60 - 999 {ML/MINUTE} [facility].; [facility], [facility]. GFR/1.73 sq M.predicted MDRD (S/P/Bld) [Vol rate/Area] mL/min/{1.73_m2} Normal 60 - 999 {ML/MINUTE} [facility].; [facility], [facility]. Globulin (S) [Mass/Vol] 1.9 g/dL Normal 1.5 - 3.8 g/dL [facility].; [facility], [facility]. Glucose [Mass/Vol] 89 mg/dL Normal 74 - 106 mg/dL [facility].; [facility], [facility]. Potassium [Moles/Vol] 4.1 mmol/L Normal 3.5 - 5.1 mmol/L [facility].; [facility], [facility]. Protein [Mass/Vol] 6.8 g/dL Normal 6.4 - 8.3 g/dL [facility], [facility].; [facility], [facility]. Sodium [Moles/Vol] 140 mmol/L Normal 136 - 145 mmol/L [facility].; [facility], [facility]. Urea nitrogen [Mass/Vol] 19 mg/dL Normal 6 - 20 mg/dL [facility].; [employer], [facility] Urea nitrogen/Creatinine [Mass ratio] 21 {ratio} Normal 0 - 30 {ratio} [facility].; [employer], [facility] Laboratory - Hematology and Cell countson 04-07-2016 Basophils (Bld) [#/Vol] 0.00 {3/UL} Normal 0.00 - 0.10 {3/UL} [facility], [facility].; [employer], [facility] Basophils/100 WBC (Bld) 0.5 % Normal 0.0 - 2.0 % [facility], [facility].; [employer], [facility] CBC W Auto Differential panel (Bld) CBC Normal [facility]; [employer] [facility], [facility] Eosinophils (Bld) [#/Vol] 0.20 {3/UL} Normal 0.00 - 0.50 {3/UL} [facility], [facility].; [employer], [facility] Eosinophils/100 WBC (Bld) 3.0 % Normal 0.0 - 7.0 % [facility].; [employer], [facility] Erythrocyte distribution width (RBC) [Ratio] 12.6 % Normal 12.0 - 15.6 % [facility], [facility].; [employer], [facility]. ESR (Bld) [Velocity] 2 mm/h Normal 0 - 20 mm/h [facility].; [employer], [facility] Hematocrit (Bld) [Volume fraction] 45.8 % Normal 40.0 - 52.0 % [facility], [facility].; [employer], [facility]. Hemoglobin (Bld) [Mass/Vol] 16.0 g/dL Normal 13.0 - 17.5 g/dL [facility], [facility].; [employer], [facility] Lymphocytes (Bld) [#/Vol] 2.10 {3/UL} Normal 0.80 - 2.80 {3/UL} [facility], [facility].; [employer], [facility] Lymphocytes/100 WBC (Bld) 31.1 % Normal 20.0 - 45.0 % [facility], [facility].; [employer], [employer]. MCH (RBC) [Entitic mass] 30 pg Normal 27 - 33 pg [employer].; [employer], [employer]. MCHC (RBC) [Mass/Vol] 35 {X10_3} Normal 32 - 3 6 {X10_3} [employer].; [employer] MCV (RBC) [Entitic vol] 86 fL Normal 81 - 98 fL [employer].; [employer], [employer]. Monocytes (Bld) [#/Vol] 0.50 {3/UL} Normal 0.20 - 1.00 {3/UL} [employer].; [employer], [employer]. Monocytes/100 WBC (Bld) 8.1 % Normal 0.0 - 10.0 % [employer].; [employer], [employer]. Morphology Henrry (Bld) [Interp] N/A Normal [employer].; [employer], [employer]. Neutrophils (Bld) [#/Vol] 3.80 {3/UL} Normal 1.50 - 7.10 {3/UL} [employer].; [employer], [employer]. Neutrophils/100 WBC (Bld) 57.3 % Normal 46.0 - 76.0 % [employer].; [employer], [employer]. Platelet mean volume (Bld) [Entitic vol] 8.9 fL Normal 6.4 - 10.5 fL [employer], [employer]. Platelets (Bld) [#/Vol] 286 {3/UL} Normal 150 - 450 {3/UL} [employer].; [employer], [employer]. RBC (Bld) [#/Vol] 5.30 {6/UL} Normal 4.50 - 6.0 0 {6/UL} [employer].; [employer], [employer]. WBC (Bld) [#/Vol] 6.7 {3/UL} Normal 4.5 - 10.8 {3/UL} [employer], [employer].; [employer], [employer]. No Panel Informationon 04-07 AGE 50 {years} Normal [employer].; [employer]. MANUAL DIFF N/A Normal [facility].; [facility] No Panel Informationon 03-20 H. pylori fingerstick Negative Normal [facility]; [facility] Vital Signs Date Time Vital Sign Value Performing Clinician Facility 08-16-2024 15:14-0400 Body height 175.26 cm Gabriele Rosales MD Work Phone: [facility].; [facility] 08-16-2024 15:14-0400 Body mass index (BMI) [Ratio] 29.83 kg/m2 Gabriele Rosales MD Work Phone: [facility].; [facility] 08-16-2024 15:14-0400 Body surface area Derived from formula 2.07 m2 Gabriele Rsoales MD Work Phone: [facility].; [facility] 08-16-2024 15:14-0400 Body temperature 97.8 [degF] Gabriele Rosales MD Work Phone: [facility].; [employer] [facility]. Comment on above: Method: Tympanic 08-16-2024 15:14-0400 Body weight 91.63 kg Gabriele Rosales MD Work Phone: [facility].; [facility]. 08-16-2024 15:14-0400 Diastolic blood pressure 82 mm[Hg] Gabriele Rosales MD Work Phone: [facility].; [facility]. Comment on above: Patient Position: Sitting; Cuff Location : Left Arm; Cuff Size: Standard 08-16-2024 15:14-0400 Heart rate 83 /min Gabriele Rosales MD Work Phone: [facility].; [employer]. Comment on above: Pattern: Regular 08-16-2024 15:14-0400 Inhaled oxygen concentration 21 % Gabriele Rosales MD Work Phone: [facility].; [employer]. Comment on above: Room air 08-16-2024 15:14-0400 SaO2% (BldA) [Mass fraction] 95 % Gabriele Rosales MD Work Phone: [facility], [facility].; [facility]. 08-16-2024 15:14-0400 Systolic blood pressure 127 mm[Hg] Gabriele Rosales MD Work Phone: [facility], [facility].; [facility] [employer] [facility]. Comment on above: Patient Position: Sitting; Cuff Location : Left Arm; Cuff Size: Standard 06-23-2023 13:10-0400 Body height 175.26 cm Lb Oscar [facility], [employer]. 06-23-2023 13:10-0400 Body mass index (BMI) [Ratio] 29.39 kg/m2 Lb Oscar CASE MANAGEMENT ASSOCIATE [facility] [employer] [facility], [employer]. 06-23-2023 13:10-0400 Body surface area Derived from formula 2.06 m2 Lb Oscar CASE MANAGEMENT ASSOCIATE [facility], [facility].; [employer] [facility], [facility]. 06-23-2023 13:10-0400 Body weight 90.27 kg Lb Oscar [facility], [facility].; [facility] [employer] [facility], [employer]. 06-23-2023 13:10-0400 Diastolic blood pressure 78 mm[Hg] Lb Moore CASE MANAGEMENT ASSOCIATE [facility] [employer], [employer]. Comment on above: Patient Position: Sitting; Cuff Location : Left Arm; Cuff Size: Standard 06-23-2023 13:10-0400 Heart rate 61 /min Lb Oscar CASE MANAGEMENT ASSOCIATE [facility], [facility].; [employer]. Comment on above: Pattern: Regular 06-23-2023 13:10-0400 Systolic blood pressure 121 mm[Hg] Lb Oscar CASE MANAGEMENT ASSOCIATE [facility], [facility].; [employer], [employer]. Comment on above: Patient Position: Sitting; Cuff Location : Left Arm; Cuff Size: Standard 08-12-2022 14:36-0400 Body height 175.26 cm Marcie Karimi CASE MANAGEMENT ASSOCIATE [facility] [employer] [facility] 08-12-2022 14:36-0400 Body mass index (BMI) [Ratio] 27.61 kg/m2 Marcie Karimi LPN [facility], [facility].; [facility], [facility]. 08-12-2022 14:36-0400 Body surface area Derived from formula 2.01 m2 Marcie Karimi LPN [facility], [facility].; [facility] 08-12-2022 14:36-0400 Body weight 84.82 kg Marcie Karimi LPN [facility], [facility].; [facility], [facility]. 08-12-2022 14:36-0400 Diastolic blood pressure 83 mm[Hg] Marcie Karimi LPN [facility], [facility].; [facility], [facility]. Comment on above: Patient Position: Sitting; Cuff Location : Left Arm; Cuff Size: Standard 08-12-2022 14:36-0400 Heart rate 71 /min Marcie Karimi LPN [facility], [facility].; [employer] [facility], [employer]. Comment on above: Pattern: Regular 08-12-2022 14:36-0400 Systolic blood pressure 137 mm[Hg] Marcie Karimi LPN [facility], [facility].; [employer] [facility], [facility]. Comment on above: Patient Position: Sitting; Cuff Location : Left Arm; Cuff Size: Standard 01-29-2022 12:01-0500 Body height 175.26 cm Jennifer Tariq RN [facility], [facility].; [facility] [employer] [facility]. 01-29-2022 12:01-0500 Body mass index (BMI) [Ratio] 26.58 kg/m2 Jennifer Tariq RN [facility], [facility].; [employer] [facility]. 01-29-2022 12:01-0500 Body surface area Derived from formula 1.98 m2 Jennifer Tariq RN [employer] [facility].; [employer]. 01-29-2022 12:01-0500 Body temperature 97.4 [degF] Jennifer Tariq RN [employer] [facility].; [employer], [employer]. Comment on above: Method: Tympanic 01-29-2022 12:01-0500 Body weight 81.65 kg Jennifer Tariq RN [employer] [facility].; [employer]. 01-29-2022 12:01-0500 Diastolic blood pressure 65 mm[Hg] Jennifer Tariq RN [facility].; [employer]. Comment on above: Patient Position: Sitting; Cuff Location : Left Arm; Cuff Size: Standard 01-29-2022 12:01-0500 Heart rate 58 /min Jennifer Tariq RN [facility].; [employer]. Comment on above: Pattern: Regular 01-29-2022 12:01-0500 Systolic blood pressure 99 mm[Hg] Jennifer Tariq RN [facility] [employer] [facility].; [employer]. Comment on above: Patient Position: Sitting; Cuff Location : Left Arm; Cuff Size: Standard 05-12-2020 13:160400 Body height 175.26 cm Jennifer Tariq RN [facility].; [employer]. 05-12-2020 13:16-0400 Body mass index (BMI) [Ratio] 31.45 kg/m2 Jennifer Tariq RN [employer] [facility].; [employer]. 05-12-2020 13:16-0400 Body surface area Derived from formula 2.12 m2 Jennifer Tariq RN [employer] [facility].; [employer]. 05-12-2020 13:16-0400 Body temperature 97.7 [degF] Jennifer Tariq RN [employer] [facility].; [employer]. Comment on above: Method: Tympanic 05-12-2020 13:160400 Body weight 96.62 kg Jnenifer Tariq RN [employer] [facility].; [employer]. 05-12-2020 13:16-0400 Diastolic blood pressure 69 mm[Hg] Jennifer Tariq RN [facility] [employer] [facility].; [employer]. Comment on above: Patient Position: Sitting; Cuff Location : Left Arm; Cuff Size: Standard 05-12-2020 13:16-0400 Heart rate 90 /min Jennifer Tariq RN [facility] [employer]. Comment on above: Pattern: Regular 05-12-2020 13:16-0400 Systolic blood pressure 111 mm[Hg] Jennifer Tariq RN [facility].; [employer]. Comment on above: Patient Position: Sitting; Cuff Location : Left Arm; Cuff Size: Standard 02-26-2020 11:36-0500 Body height 175.26 cm Jennifer Tariq RN [employer] [facility].; [employer]. 02-26-2020 11:36-0500 Body mass index (BMI) [Ratio] 31.45 kg/m2 Jennifer Tariq RN [employer] [facility].; [employer] [facility]. 02-26-2020 11:36-0500 Body surface area Derived from formula 2.12 m2 Jennifer Tariq RN [employer] [facility].; [employer] [facility]. 02-26-2020 11:36-0500 Body weight 96.62 kg Jennifer Tariq RN [employer] [facility].; [employer] [facility]. 02-26-2020 11:36-0500 Diastolic blood pressure 92 mm[Hg] Jennifer Tariq RN [employer] [facility].; [employer]. Comment on above: Patient Position: Sitting; Cuff Location : Left Arm; Cuff Size: Standard 02-26-2020 11:36-0500 Heart rate 82 /min Jennifer Tariq RN [employer] [facility].; [employer]. Comment on above: Pattern: Regular 02-26-2020 11:36-0500 Systolic blood pressure 160 mm[Hg] Jennifer Tariq RN [employer].; [employer]. Comment on above: Patient Position: Sitting; Cuff Location : Left Arm; Cuff Size: Standard 01-31-2020 09:57-0500 Body height 175.26 cm Jennifer Tariq RN [employer].; [employer]. 01-31-2020 09:57-0500 Body mass index (BMI) [Ratio] 31.16 kg/m2 Jennifer Tariq RN [employer] [facility].; [facility] [employer] [facility]. 01-31-2020 09:57-0500 Body surface area Derived from formula 2.11 m2 Jennifer Tariq RN [facility].; [employer] [facility]. 01-31-2020 09:57-0500 Body temperature 97.3 [degF] Jennifer [facility]ariq RN [facility].; [employer]. Comment on above: Method: Tympanic 01-31-2020 09:57-0500 Body weight 95.71 kg Jennifer Tariq RN [employer] [facility].; [employer]. 01-31-2020 09:57-0500 Diastolic blood pressure 89 mm[Hg] Jennifer Tariq RN [facility].; [employer]. Comment on above: Patient Position: Sitting; Cuff Location : Right Arm; Cuff Size: Standard 01-31-2020 09:57-0500 Heart rate 82 /min Jennifer Tariq RN [employer] [facility].; [employer]. Comment on above: Pattern: Regular 01-31-2020 09:57-0500 Systolic blood pressure 143 mm[Hg] Jennifer Tariq RN [employer] [facility].; [facility] [employer]. Comment on above: Patient Position: Sitting; Cuff Location : Right Arm; Cuff Size: Standard 01-11-2020 09:51-0500 Body temperature 97.6 [degF] Gabriele Rosales MD Work Phone: [employer].; [employer]. 01-11-2020 09:51-0500 Body weight 92.53 kg Gabriele Rosales MD Work Phone: [employer].; [employer]. 01-11-2020 09:51-0500 Diastolic blood pressure 104 mm[Hg] Gabriele Rosales MD Work Phone: [facility] [employer].; [employer]. Comment on above: Patient Position: Sitting; Cuff Location : Left Arm; Cuff Size: Standard 01-11-2020 09:51-0500 Heart rate 80 /min Gabriele Rosales MD Work Phone: [employer].; [employer]. Comment on above: Pattern: Regular 01-11-2020 09:51-0500 Systolic blood pressure 159 mm[Hg] Gabriele Rosales MD Work Phone: [employer].; [employer]. Comment on above: Patient Position: Sitting; Cuff Location : Left Arm; Cuff Size: Standard 03-28-2019 16:22-0500 Body height 175.26 cm Chelita Nelson CASE MANAGEMENT ASSOCIATE Work Phone: [employer].; [employer]. 03-28-2019 16:22-0500 Body mass index (BMI) [Ratio] 31.9 kg/m2 Chelita Nelson CASE MANAGEMENT ASSOCIATE Work Phone: [employer].; [employer]. 03-28-2019 16:22-0500 Body surface area Derived from formula 2.13 m2 Chelita Nelson CASE MANAGEMENT ASSOCIATE Work Phone: [employer].; [employer]. 03-28-2019 16:22-0500 Body weight 97.98 kg Chelita Nelson CASE MANAGEMENT ASSOCIATE Work Phone: [employer].; [employer]. 03-28-2019 16:22-0500 Diastolic blood pressure 101 mm[Hg] Chelita Nelson CASE MANAGEMENT ASSOCIATE Work Phone: [employer].; [employer]. Comment on above: Patient Position: Sitting; Cuff Location : Left Arm; Cuff Size: Large 03-28-2019 16:22-0500 Heart rate 80 /min Chelita Nelson CASE MANAGEMENT ASSOCIATE Work Phone: [employer].; [employer]. Comment on above: Pattern: Regular 03-28-2019 16:22-0500 Systolic blood pressure 150 mm[Hg] Chelita Nelson CASE MANAGEMENT ASSOCIATE Work Phone: [employer].; [employer]. Comment on above: Patient Position: Sitting; Cuff Location : Left Arm; Cuff Size: Large 12-25-2018 15:33-0500 Body height 175.26 cm Gabriele Rosales MD Work Phone: [employer].; [employer]. 12-25-2018 15:33-0500 Body mass index (BMI) [Ratio] 32.34 kg/m2 Gabriele Rosales MD Work Phone: [employer].; [employer]. 12-25-2018 15:33-0500 Body surface area Derived from formula 2.15 m2 Gabriele Rosales MD Work Phone: [employer].; [employer]. 12-25-2018 15:33-0500 Body weight 99.34 kg Gabriele Rosales MD Work Phone: [employer].; [employer]. 12-25-2018 15:33-0500 Diastolic blood pressure 92 mm[Hg] Gabriele Rosales MD Work Phone: [employer].; [employer]. Comment on above: Patient Position: Sitting; Cuff Location : Left Arm; Cuff Size: Standard 12-25-2018 15:33-0500 Heart rate 97 /min Gabriele Rosales MD Work Phone: [employer].; [employer]. Comment on above: Pattern: Regular 12-25-2018 15:33-0500 Systolic blood pressure 140 mm[Hg] Gabriele Rosales MD Work Phone: [employer].; [employer]. Comment on above: Patient Position: Sitting; Cuff Location : Left Arm; Cuff Size: Standard 12-04-2018 09:15-0400 Body height 175.26 cm Demetria Beyer LPN [employer]. 12-04-2018 09:15-0400 Body mass index (BMI) [Ratio] 31.64 kg/m2 Demetria Beyer LPN [employer]. 12-04-2018 09:15-0400 Body surface area Derived from formula 2.13 m2 Demetria Beyer ALEX Standard [employer] [facility], Inc.; [employer] 12-04-2018 09:15-0400 Body temperature 97 [degF] Demetria Beyer [facility] [employer], C[employer] and Wanted. Comment on above: Method: Tympanic 12-04-2018 09:150400 Body weight 97.18 kg Demetria Beyer [facility] [employer], Inc.; [employer]. 12-04-2018 09:15-0400 Diastolic blood pressure 80 mm[Hg] Dem[facility]ria [facility]yer [facility], Inc.; [employer], [employer]. Comment on above: Patient Position: Sitting; Cuff Location : Left Arm; Cuff Size: Standard 12-04-2018 09:15-0400 Heart rate 80 /min Demetria Beyer [facility] [employer], [employer].; [employer]. Comment on above: Pattern: Regular 12-04-2018 09:15-0400 Inhaled oxygen concentration 21 % Demetria Beyer [facility] Center[facility] Inc.; [employer]. Comment on above: Room air 12-04-2018 09:15-0400 SaO2% (BldA) [Mass fraction] 96 % Demetria Beyer [facility] [employer], Inc.; [employer] 12-04-2018 09:15-0400 Systolic blood pressure 114 mm[Hg] Demetria Beyer CASE MANAGEMENT ASSOCIATEAdvanced [facility] Hospital [facility] Southern New MexicoiConText.; [employer]. Comment on above: Patient Position: Sitting; Cuff Location : Left Arm; Cuff Size: Standard 04-24-2018 15:17-0400 Body height 175.26 cm Gabriele Rosales MD Work Phone: [employer]. 04-24-2018 15:17-0400 Body mass index (BMI) [Ratio] 31.01 kg/m2 Gabriele Rosales MD Work Phone: [employer].; [employer]. 04-24-2018 15:17-0400 Body surface area Derived from formula 2.11 m2 Gabriele Rosales MD Work Phone: [employer]; [employer]. 04-24-2018 15:17-0400 Body weight 95.26 kg Gabriele Rosales MD Work Phone: [employer].; [employer]. 04-24-2018 15:17-0400 Diastolic blood pressure 94 mm[Hg] Gabriele Rosales MD Work Phone: [employer].; [employer]. Comment on above: Patient Position: Sitting; Cuff Location : Left Arm; Cuff Size: Standard 04-24-2018 15:17-0400 Heart rate 83 /min Gabriele Rosales MD Work Phone: [employer]; [employer] Comment on above: Pattern: Regular 04-24-2018 15:17-0400 Systolic blood pressure 148 mm[Hg] Gabriele Rosales MD Work Phone: [employer]; [employer]. Comment on above: Patient Position: Sitting; Cuff Location : Left Arm; Cuff Size: Standard 12-09-2017 14:46-0400 Body height 175.26 cm Gabriele Rosales MD Work Phone: [employer]; [employer] 12-09-2017 14:46-0400 Body mass index (BMI) [Ratio] 29.98 kg/m2 Gabriele Rosales MD Work Phone: [employer]; [employer]. 12-09-2017 14:46-0400 Body surface area Derived from formula 2.08 m2 Gabriele Rosales MD Work Phone: [employer]; [employer]. 12-09-2017 14:46-0400 Body temperature 96.9 [degF] Gabriele Rosales MD Work Phone: [employer]; [employer] Comment on above: Method: Tympanic 12-09-2017 14:46-0400 Body weight 92.08 kg Gabriele Rosales MD Work Phone: [employer].; [employer]. 12-09-2017 14:46-0400 Diastolic blood pressure 82 mm[Hg] Gabriele Rosales MD Work Phone: [employer].; [employer]. Comment on above: Patient Position: Sitting; Cuff Location : Right Arm; Cuff Size: Standard 12-09-2017 14:46-0400 Heart rate 79 /min Gabriele Rosales MD Work Phone: [employer].; [employer]. Comment on above: Pattern: Regular 12-09-2017 14:46-0400 Systolic blood pressure 126 mm[Hg] Gabriele Rosales MD Work Phone: [employer].; [employer]. Comment on above: Patient Position: Sitting; Cuff Location : Right Arm; Cuff Size: Standard 06-07-2017 11:33-0400 Diastolic blood pressure 88 mm[Hg] Demetria Beyer LPN [employer].; [employer]. Comment on above: Patient Position: Sitting; Cuff Location : Left Arm; Cuff Size: Standard 06-07-2017 11:33-0400 Heart rate 70 /min Demetria Beyer LPN [employer].; [employer]. Comment on above: Pattern: Regular 06-07-2017 11:33-0400 Systolic blood pressure 132 mm[Hg] Demetria Beyer LPN [employer].; [employer]. Comment on above: Patient Position: Sitting; Cuff Location : Left Arm; Cuff Size: Standard 06-01-2017 13:34-0400 Body temperature 97.5 [degF] Gabriele Rosales MD Work Phone: [employer].; [employer]. 06-01-2017 13:34-0400 Body weight 93.9 kg Gabriele Rosales MD Work Phone: [employer].; [employer]. 06-01-2017 13:34-0400 Diastolic blood pressure 104 mm[Hg] Gabriele Rosales MD Work Phone: [facility].; [employer]. Comment on above: Patient Position: Sitting; Cuff Location : Left Arm; Cuff Size: Standard 06-01-2017 13:34-0400 Heart rate 73 /min Gabriele Rosales MD Work Phone: [facility].; [employer]. Comment on above: Pattern: Regular 06-01-2017 13:34-0400 Inhaled oxygen concentration 21 % Gabriele Rosales MD Work Phone: Standard [employer]. Comment on above: Room air 06-01-2017 13:34-0400 SaO2% (BldA) [Mass fraction] 96 % Gabriele Rosales MD Work Phone: Standard [employer]. 06-01-2017 13:34-0400 Systolic blood pressure 153 mm[Hg] Gabriele Rosales MD Work Phone: Standard [employer]. Comment on above: Patient Position: Sitting; Cuff Location : Left Arm; Cuff Size: Standard 04-20-2017 08:21-0500 Body height 175.26 cm Lynn [place] [facility] [employer] [facility], [employer].; [employer]. 04-20-2017 08:21-0500 Body mass index (BMI) [Ratio] 30.86 kg/m2 Lynn Stuckey [facility] [employer] [facility].; [employer]. 04-20-2017 08:21-0500 Body surface area Derived from formula 2.1 m2 [facility] Coby [facility] [employer] [facility].; [employer]. 04-20-2017 08:21-0500 Body weight 94.8 kg [facility] Coby [facility] [employer] [facility].; [employer]. 04-20-2017 08:21-0500 Diastolic blood pressure 102 mm[Hg] LynnAbida Tenorio [facility] [employer] [facility].; [employer]. Comment on above: Patient Position: Sitting; Cuff Location : Left Arm; Cuff Size: Large 04-20-2017 08:21-0500 Heart rate 67 /min Jes Tenorio [facility] [employer] [facility], Inc.; [employer]. Comment on above: Pattern: Regular 04-20-2017 08:21-0500 Systolic blood pressure 144 mm[Hg] Jes Tenorio [facility] [employer], Inc.; [employer] Comment on above: Patient Position: Sitting; Cuff Location : Left Arm; Cuff Size: Large 04-07-2016 15:49-0500 Body height 175.26 cm [facility]ang [facility] [employer] [facility], Inc.; [employer]. 04-07-2016 15:49-0500 Body mass index (BMI) [Ratio] 28.8 kg/m2 Trang Grant [facility] [employer] [facility], Inc.; [employer] 04-07-2016 15:49-0500 Body surface area Derived from formula 2.04 m2 Trang Grant LPN Standard [employer] [facility], Inc.; [employer] 04-07-2016 15:49-0500 Body weight 88.45 kg Trang Grant [facility] [employer], Inc.; [employer], Cuffed and Wanted. 04-07-2016 15:49-0500 Diastolic blood pressure 75 mm[Hg] Trang Grant [facility] [employer], Inc.; [employer]. Comment on above: Patient Position: Sitting; Cuff Location : Left Arm; Cuff Size: Standard 04-07-2016 15:49-0500 Systolic blood pressure 112 mm[Hg] Trang Grant LPN [employer]. Comment on above: Patient Position: Sitting; Cuff Location : Left Arm; Cuff Size: Standard 07-10-2015 11:39-0400 Body height 173.99 cm Demetria Beyer LPAdvanced Care Hospital Of Southern New MexicoNektar Therapeutics, Inc.; [employer] 07-10-2015 11:39-0400 Body mass index (BMI) [Ratio] 30.72 kg/m2 Demetria Beyer [facility] Center[facility], Inc.; [employer] 07-10-2015 11:39-0400 Body surface area Derived from formula 2.08 m2 Demetria Figueroajamar [facility], Inc.; [employer], [employer] Wanted. 07-10-2015 11:39-0400 Body temperature 97.3 [degF] Demetria Chantashareyes [facility], Inc.; [employer] Comment on above: Method: Tympanic 07-10-2015 11:39-0400 Body weight 92.99 kg Demetria Wejamar [facility], Inc.; [employer], [employer] Wanted. 07-10-2015 11:39-0400 Diastolic blood pressure 88 mm[Hg] Demetria Wejamar [facility], Inc.; [employer], [employer]. Comment on above: Patient Position: Sitting; Cuff Location : Left Arm; Cuff Size: Standard 07-10-2015 11:39-0400 Heart rate 65 /min Demetria Henryjamar [facility], Inc.; [employer]. Comment on above: Pattern: Regular 07-10-2015 11:39-0400 Inhaled oxygen concentration 21 % Demetria Wejamar [facility] [employer] [facility], Inc.; [employer], [employer] Wanted. Comment on above: Room air 07-10-2015 11:39-0400 SaO2% (BldA) [Mass fraction] 98 % Demetria Wejamar [facility], Inc.; [employer], [employer] Wanted. 07-10-2015 11:39-0400 Systolic blood pressure 132 mm[Hg] Demetria Wejamar [facility] [employer] [facility], Inc.; [employer]. Comment on above: Patient Position: Sitting; Cuff Location : Left Arm; Cuff Size: Standard 12-04-2014 11:04-0400 Body height 173.99 cm Jes Tenorio [facility] [employer] [facility], Inc.; [employer]. 12-04-2014 11:04-0400 Body mass index (BMI) [Ratio] 31.17 kg/m2 Jes Victoruckey [facility] [employer] [facility], Inc.; [employer]. 12-04-2014 11:04-0400 Body surface area Derived from formula 2.09 m2 Jes Tenorio LPN [facility], Inc.; Dawson [employer] [facility], Cuffed and Wanted. 12-04-2014 11:04-0400 Body temperature 97.4 [degF] Jes Tenorio [facility], Inc.; Dawson [employer], Cuffed [employer] Wanted. Comment on above: Method: Tympanic 12-04-2014 11:04-0400 Body weight 94.35 kg Jes Tenorio [facility], Inc.; Dawson [employer] [facility], Cuffed and Wanted. 12-04-2014 11:04-0400 Diastolic blood pressure 99 mm[Hg] Jes Tenorio [facility], Cuffed and Wanted.; [employer], [employer]. Comment on above: Patient Position: Sitting; Cuff Location : Left Arm; Cuff Size: Large 12-04-2014 11:04-0400 Heart rate 81 /min Jes Tenorio [facility], Inc.; [employer], Cuffed and Wanted. Comment on above: Pattern: Regular 12-04-2014 11:04-0400 Inhaled oxygen concentration 21 % LynnAbida Tenorio [facility], Inc.; [employer], Cuffed and Wanted. Comment on above: Room air 12-04-2014 11:04-0400 SaO2% (BldA) [Mass fraction] 97 % LynnAbida Tenorio [facility], Inc.; [employer], [employer] and Wanted. 12-04-2014 11:04-0400 Systolic blood pressure 155 mm[Hg] Jes Tenorio [facility], Cuffed and Wanted.; [employer], [employer] Wanted. Comment on above: Patient Position: Sitting; Cuff Location : Left Arm; Cuff Size: Large 10-14-2014 13:38-0400 Body height 173.99 cm Jes Tenorio [facility], Inc.; Dawson [employer]. 10-14-2014 13:38-0400 Body mass index (BMI) [Ratio] 31.17 kg/m2 Jes Tenorio [facility], Inc.; [employer]Text. 10-14-2014 13:38-0400 Body surface area Derived from formula 2.09 m2 Jes Tenorio [facility], Inc.; [employer] 10-14-2014 13:38-0400 Body weight 94.35 kg Jes Tenorio CASE MANAGEMENT ASSOCIATE [facility], Inc.; [employer] 10-14-2014 13:38-0400 Diastolic blood pressure 83 mm[Hg] Jes Tenorio CASE MANAGEMENT ASSOCIATE [facility], Inc.; [employer] Comment on above: Patient Position: Sitting; Cuff Location : Left Arm; Cuff Size: Large 10-14-2014 13:38-0400 Heart rate 73 /min Jes Tenorio ALEX [facility], Inc.; [employer] Comment on above: Pattern: Regular 10-14-2014 13:38-0400 Systolic blood pressure 135 mm[Hg] Jes Tenorio CASE MANAGEMENT ASSOCIATE Standard [employer] [facility], Inc.; [employer] Comment on above: Patient Position: Sitting; Cuff Location : Left Arm; Cuff Size: Large 05-08-2014 15:53-0400 Body height 173.99 cm Demetria Beyer LPN Standard [employer] [facility], Inc.; [employer] 05-08-2014 15:53-0400 Body mass index (BMI) [Ratio] 28.98 kg/m2 Demetria Beyer LPN Standard [employer] [facility], Inc.; [employer] 05-08-2014 15:53-0400 Body surface area Derived from formula 2.03 m2 Demetria Beyer LPN Standard [employer] [facility], Inc.; [employer] 05-08-2014 15:53-0400 Body weight 87.74 kg Demetria Byeer LPN Standard [employer] [facility], Inc.; [employer], Cuffed and Wanted. 05-08-2014 15:53-0400 Diastolic blood pressure 85 mm[Hg] Demetria Beyer LPN Standard [employer] [facility], Inc.; [employer] Comment on above: Patient Position: Sitting; Cuff Location : Left Arm; Cuff Size: Standard 05-08-2014 15:53-0400 Heart rate 63 /min Demetria Beyer LPN Standard [employer] [facility], Inc.; [employer], Cuffed and Wanted. Comment on above: Pattern: Regular 05-08-2014 15:53-0400 Systolic blood pressure 128 mm[Hg] Demetria Kayleen AMAYAHca [facility], [facility].; Standard [employer] [facility], Cuffed and Wanted. Comment on above: Patient Position: Sitting; Cuff Location : Left Arm; Cuff Size: Standard 03-20-2014 07:29-0500 Body height 173.99 cm Jes Tenorio [facility], Inc.; Standard [employer] [facility], Cuffed and Wanted. 03-20-2014 07:29-0500 Body mass index (BMI) [Ratio] 29.52 kg/m2 Jes Tenorio [facility], [facility].; Standard [employer] [facility], Cuffed and Wanted. 03-20-2014 07:29-0500 Body surface area Derived from formula 2.04 m2 [facility] Coby [facility], [facility].; Standard [employer] [facility], [facility]. 03-20-2014 07:29-0500 Body weight 89.36 kg Jes Tenorio [facility], [facility].; Standard [employer] [facility], Cuffed and Wanted. 03-20-2014 07:29-0500 Diastolic blood pressure 89 mm[Hg] Jes Tenorio [facility], [facility].; Dawson [employer] [facility], Cuffed and Wanted. Comment on above: Patient Position: Sitting; Cuff Location : Left Arm; Cuff Size: Large 03-20-2014 07:29-0500 Heart rate 71 /min Jes Tenorio [facility], [facility].; Dawson [employer], Cuffed and Wanted. Comment on above: Pattern: Regular 03-20-2014 07:29-0500 Systolic blood pressure 127 mm[Hg] Jes Tenorio [facility], [facility].; Dawson [employer], Cuffed and Wanted. Comment on above: Patient Position: Sitting; Cuff Location : Left Arm; Cuff Size: Large 11-22-2013 08:37-0400 Body temperature 97.3 [degF] Demetria Beyer [facility], [facility].; [employer], Cuffed and Wanted. Comment on above: Method: Tympanic 11-22-2013 08:37-0400 Body weight 95.77 kg Demetria Beyer LPN [facility], Inc.; [employer], C[employer] and Wanted. 11-22-2013 08:37-0400 Diastolic blood pressure 88 mm[Hg] Demetria Beyer LPN Standard [employer] [facility], Inc.; [employer]. Comment on above: Patient Position: Sitting; Cuff Location : Left Arm; Cuff Size: Standard 11-22-2013 08:37-0400 Heart rate 79 /min Demetria Beyer LPN [facility], Inc.; [employer]. Comment on above: Pattern: Regular 11-22-2013 08:37-0400 Inhaled oxygen concentration 21 % Demetria Beyer LPN Standard [employer] [facility], Inc.; [employer], [employer]uffed and Wanted. Comment on above: Room air 11-22-2013 08:37-0400 SaO2% (BldA) [Mass fraction] 96 % Demetria Beyer LPN Standard [employer] [facility], Inc.; [employer], Cuffed and Wanted. 11-22-2013 08:37-0400 Systolic blood pressure 128 mm[Hg] Demetria Beyer LPN Standard [employer] [facility], Inc.; [employer], [employer]uffed and Wanted. Comment on above: Patient Position: Sitting; Cuff Location : Left Arm; Cuff Size: Standard 11-12-2013 11:03-0400 Body weight 95.26 kg Trang Grant LPN Standard [employer] [facility], Inc.; [employer] 11-12-2013 11:03-0400 Diastolic blood pressure 88 mm[Hg] Trang Grant LPN Standard [employer] [facility], Inc.; [employer], [employer] and Wanted. Comment on above: Patient Position: Sitting; Cuff Location : Left Arm; Cuff Size: Standard 11-12-2013 11:03-0400 Heart rate 75 /min Trang Grant LPN Standard [employer] [facility], Inc.; [employer]. Comment on above: Pattern: Regular 11-12-2013 11:03-0400 Systolic blood pressure 127 mm[Hg] Trang Grant LPN Standard [employer] [facility], Inc.; [employer], [employer] and Wanted. Comment on above: Patient Position: Sitting; Cuff Location : Left Arm; Cuff Size: Standard Encounters Encounter Date Encounter Type Care Provider Facility Start: 12-10-2024 End: 12-10-2024 [facility] Start: 10-30-2024 End: 10-30-2024 ambulatory RONNY ESPINAL [facility] Start: 08-16-2024 End: 08-16-2024 Office outpatient visit 15 minutes Gabriele Rosales MD Work Phone: [employer]. Start: 01-31-2024 End: 01-31-2024 Orders Gabriele Rosales MD Work Phone: [employer]. Start: 06-23-2023 End: 06-23-2023 Periodic preventive med est patient 40-64yrs Gabriele Rosales MD Work Phone: [employer]. Start: 06-23-2023 End: 06-23-2023 Physical examination Gabriele Rosales MD Work Phone: [employer].; [employer]. Start: 06-23-2023 Review Gabriele Rosales MD Work Phone: [employer]. Start: 06-08-2023 End: 06-08-2023 Orders Gabriele Rosales MD Work Phone: [employer]. Start: 08-12-2022 End: 08-12-2022 Office outpatient visit 15 minutes Gabriele Rosales MD Work Phone: [employer]. Start: 02-01-2022 End: 02-01-2022 Orders Gabriele Rosales MD Work Phone: [employer]. Start: 02-01-2022 End: 02-01-2022 Medication Gabriele Rosales MD Work Phone: [employer]. Start: 01-29-2022 End: 01-29-2022 Office outpatient visit 15 minutes Gabriele Rosales MD Work Phone: [employer]. Start: 05-14-2020 End: 05-14-2020 Orders Gabriele Rosales MD Work Phone: [employer]. Start: 05-12-2020 End: 05-12-2020 Office outpatient visit 15 minutes Gabriele Rosales MD Work Phone: [employer]. Start: 04-09-2020 End: 04-09-2020 Medication Gabriele Rosales MD Work Phone: [employer]. Start: 02-26-2020 End: 02-26-2020 Office outpatient visit 10 minutes Gabriele Rosales MD Work Phone: [employer]. Start: 01-31-2020 End: 01-31-2020 Office outpatient visit 25 minutes Gabriele Rosales MD Work Phone: [employer] Start: 01-11-2020 End: 01-11-2020 Office outpatient visit 15 minutes Gabriele Rosales MD Work Phone: [employer]. Start: 03-28-2019 End: 03-28-2019 Office outpatient visit 15 minutes Gabriele Rosales MD Work Phone: [employer] Start: 12-25-2018 End: 12-25-2018 Office outpatient visit 15 minutes Gabriele Rosales MD Work Phone: [employer] Start: 12-04-2018 End: 12-04-2018 Office outpatient visit 15 minutes Gabriele Rosales MD Work Phone: [employer]. Start: 08-14-2018 End: 08-14-2018 Historical Summary Gabriele Rosales MD Work Phone: [employer] Start: 04-24-2018 End: 04-24-2018 Periodic preventive med est patient 40-64yrs Gabriele Rosales MD Work Phone: [employer]. Start: 04-24-2018 End: 04-24-2018 Physical examination Gabriele Rosales MD Work Phone: [employer]; [employer]. Start: 12-09-2017 End: 12-09-2017 Office outpatient visit 15 minutes Gabriele Rosales MD Work Phone: [employer] Start: 06-07-2017 End: 06-07-2017 Historical Summary Gabriele Rosales MD Work Phone: [employer] Start: 06-01-2017 End: 06-01-2017 Patient encounter procedure Gabriele Rosales MD Work Phone: [employer]. Start: 04-20-2017 End: 04-20-2017 Office outpatient visit 15 minutes Gabriele Rosales MD Work Phone: [employer]. Start: 04-07-2016 End: 04-08-2016 Office outpatient visit 15 minutes Gabriele Rosales MD Work Phone: [employer]. Start: 07-18-2015 End: 07-19-2015 Medication Gabriele Rosales MD Work Phone: [employer]. Start: 07-10-2015 End: 07-10-2015 Patient encounter procedure Gabriele Rosales MD Work Phone: [employer] Start: 12-10-2014 End: 12-10-2014 Medication Gabriele Rosales MD Work Phone: [employer]. Start: 12-04-2014 End: 12-04-2014 Office outpatient visit 15 minutes Gabriele Rosales MD Work Phone: [employer]. Start: 10-14-2014 End: 10-14-2014 Office outpatient visit 15 minutes Gabriele Rosales MD Work Phone: [employer] Start: 05-08-2014 End: 05-08-2014 Patient encounter procedure Gabriele Rosales MD Work Phone: [employer]. Start: 04-03-2014 End: 04-03-2014 Telephone encounter Cooper Nelson MD Work Phone: General Surgery Comment on above: Outpatient Endoscopy (04-10-2014 egd) Start: 03-29-2014 End: 03-29-2014 Orders Gabriele Rosales MD Work Phone: [employer]. Start: 03-20-2014 End: 03-20-2014 Office outpatient visit 15 minutes Gabriele Rosales MD Work Phone: [employer] Start: 11-22-2013 End: 11-22-2013 Patient encounter procedure [facility] [place] [facility] Start: 11-12-2013 End: 11-12-2013 Office outpatient visit 15 minutes Gabriele Rosales MD Work Phone: [place] [facility]. Procedures Date Procedure Procedure Detail Performing Clinician Start: 10-30-2024 Urinalysis RONNY HARRYANIA Comment on above: Result Comment: URINALYSIS Performed By: #### [id number] #### [facility],[address] [place] [address] Start: 08-03-2023 End: 08-03-2023 Cologuard Sima Urban MA Comment on above: Normal. Negative Start: 06-23-2023 End: 06-23-2023 Depression screening Gabriele Rosales MD Work Phone: Start: 06-23-2023 End: 08-05-2023 Oncology colorectal screening gerhard 10 dna markrs Gabriele Rosales MD Work Phone: Start: 06-23-2023 End: 06-23-2023 Pos clin depres scrn f/u doc Gabriele correa MD Work Phone: Start: 06-23-2023 End: 06-23-2023 Scr dep neg, no plan reqd Gabriele Rosales MD Work Phone: Start: 06-15-2023 End: 06-15-2023 Lab findings surveillance Lb Moore L PN Comment on above: CMP 110 Start: 06-15-2023 End: 06-15-2023 Lipid panel Lb Moore LPN Comment on above: TC 183, HDL 48, TRI 60, LDL 120 Start: 06-15-2023 End: 06-15-2023 Prostate specific antigen measurement Lb Moore LPN Comment on above: 0.43 Start: 08-12-2022 End: 08-12-2022 Radex foot complete minimum 3 views Anat Teague PA-C Work Phone: Start: 01-29-2022 End: 01-29-2022 Removal impacted cerumen instrumentation unilat Anat Teague PA-C Work Phone: Start: 05-14-2020 End: 05-19-2020 Ct abdomen & pelvis w/contrast material Anat Sandeep Teague PA-C Work Phone: Start: 01-11-2020 End: 01-14-2020 Ecg routine ecg w/least 12 lds i&r only Anat Hopkins Ho PA-C Work Phone: Start: 07-26-2018 End: 07-26-2018 Dmitry Tariq RN Comment on above: Normal. Negative Start: 04-24-2018 End: 04-24-2018 Depression screening Gabriele Rosales MD Work Phone: Start: 04-24-2018 End: 04-08-2021 Oncology colorectal screening gerhard 10 dna markrs Gabriele Rosales MD Work Phone: Start: 04-24-2018 End: 04-24-2018 Scr dep neg, no plan reqd Gabriele Rosales MD Work Phone: Start: 04-20-2017 End: 04-20-2017 Body mass index documented Gabriele Rosales MD Work Phone: Start: 04-07-2016 End: 04-09-2016 Ecg routine ecg w/least 12 lds i&r only Roberto Flor MOTORBOAT MECHANIC-C Work Phone: Start: 10-14-2014 End: 10-14-2014 Removal impacted cerumen instrumentation unilat Gabriele Rosales MD Work Phone: Start: 05-08-2014 End: 05-09-2014 Radex toe minimum 2 views Kirstin Hopkins Palm er PA-C Work Phone: Comment on above: 4th and 5th digit Start: 04-10-2014 Esophagogastroduodenoscopy transoral diagnostic Cooper Nelson MD Work Phone: Plan of Treatment Date Care Activity Detail Author Start: 03-26-2024 Patient encounter procedure Medical; PHYSICAL - [facility] Start: 26-Mar-2024 14:50-05:00 MD Gabriele Rosales Appointment Request [facility] Start: 03-12-2024 Comprehensive metabolic panel CMP w/ GFR* (15082) Start: 12-Mar-2024 Request [facility] [employer] Start: 03-12-2024 Lipid panel LIPID PANEL (20722) Start: 12-Mar-2024 Request [facility] [employer] Start: 03-12-2024 Nursing evaluation of patient and report Medical; Nurse visit - [facility], fasting labs [facility] Start: 12-Mar-2024 10:00-05:00 NURSE, FLOAT Appointment Request [facility]. Start: 06-23-2023 Oncology colorectal screening gerhard 10 dna markrs COLOGUARD COLON CANCER SCREENING USING STOOL DNA AT POINT OF CARE (94176) Start: 23-Jun-2023 Intent [facility] [employer] Start: 06-23-2023 Patient encounter procedure Medical; PHYSICAL - [facility] Start: 23-Jun-2023 13:10-04:00 MD Gabriele Rosales Appointment Request [facility]. Start: 06-15-2023 Assay of prostate specific antigen total PSA TOTAL (PROSTATE SPECIFIC ANTIGEN) (10644) Start: 15-Jun-2023 Request [facility] [employer] Start: 06-15-2023 Comprehensive metabolic panel CMP w/ GFR* (46905) Start: 15-Jun-2023 Request [facility] [employer] Start: 06-15-2023 Lipid panel LIPID PANEL (99893) Start: 15-Jun-2023 Request [facility] [employer] Start: 06-15-2023 Nursing evaluation of patient and report Medical; Nurse visit - [facility] Start: 15-Jun-2023 08:40-04:00 ROOM, PROCEDURE (DRAW) Appointment Request [facility] Start: 10-15-2020 Influenza vaccination INFLUENZA (Season Ended) [facility] Start: 09-04-2017 Screening for malignant neoplasm of colon [facility] Start: 09-04-2017 SHINGRIX VACCINE (1 of 2) SHINGRIX VACCINE (1 of 2) [facility] Start: 09-04-2012 DIABETES SCREEN DIABETES SCREEN [facility] Start: 09-04-2002 LIPID SCREEN LIPID SCREEN [facility] Start: 09-04-1986 Urine microalbumin profile DTAP,TDAP,TD (1 - Tdap) [facility] Start: 09-04-1985 HEPATITIS C SCREENING HEPATITIS C SCREENING [facility] Start: 09-04-1985 HIV SCREENING HIV SCREENING [facility] Start: 1979 Adult depression screening assessment DEPRESSION SCREENING [facility] Payers Date Payer Category Payer Unknown [employer] [id number] 2013-2018 Indemnity 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 [facility]. Caffeine Use Caffeine Use [employer] Tobacco Use: Tobacco Use: ; N ever smoker. [facility] [employer] Male [employer] Work Phone: Moderate alcohol use [facility] [employer] Work Phone: Clinical Note 11-02-2024 Note Date & Type Note Facility 11-02-[address] [facility] CONSULTATION REPORT NAME ACCOUNT SEX AGE ADMIT DISCHARGE PT MED. RECORD# NUMBER DATE DATE TYPE DAYANNA APONTE [id number] M 59 10/30/2024 2 [id number] ROOM: [facility] [place] DATE OF : 1965 DICTATING PHYSICIAN: Argenis Giles DATE OF CONSULTATION: October 30, 2024 REASON FOR CONSULTATION: Abdominal pain. HISTORY OF PRESENT ILLNESS: Mr. Aponte is a 59-year-old male who presented to [facility] this morning with one day of abdominal pain. He describes the pain as sharp, crampy and colicky. The pain is described as intermittent with frequent severe exacerbations. He has also been experiencing non-bloody emesis and non-bloody diarrhea. PAST MEDICAL HISTORY: None. PAST SURGICAL HISTORY: Significant for orchiopexy and a tonsillectomy. CURRENT MEDICATIONS: None. ALLERGIES: No known drug allergies. SOCIAL HISTORY: Negative for tobacco, alcohol or illicit substance use. PHYSICAL EXAMINATION: VITAL SIGNS: He is afebrile. Vital signs are stable and within normal limits. GENERAL: He is alert, oriented and appropriate with no acute distress. CARDIOVASCULAR: Regular rate and rhythm. LUNGS: Lungs are clear to auscultation bilaterally. ABDOMEN: Abdomen is soft and nondistended with positive tenderness to palpation along the right lateral aspect of the abdomen and in the epigastrium. No rebound, guarding, or peritoneal signs. EXTREMITIES: Extremities show no cyanosis, edema or gross deformities. No hernias. NEUROLOGIC: GCS is 15. Cranial nerves II through XII are grossly intact. He has 5/5 muscle strength in all groups, and sensation is grossly intact. DIAGNOSTIC DATA: Laboratory evaluation reveals a CBC, a CMP, a lactate, and a CRP all within normal limits. Urinalysis is unremarkable. CT of the abdomen and pelvis was obtained, which had findings concerning for ascending colon colitis and gastric wall thickening suspicious for peptic ulcer disease. ASSESSMENT/RECOMMENDATIONS: A 59-year-old male with abdominal pain. Page 1 of 2 DAYANNA APONTE Consultant Report DAYANNA APONTE : 1965 1. Peptic ulcer disease. We will perform an EGD. The risks, benefits, and alternatives were discussed. All questions were answered, and he voiced understanding and agreement with the procedure. 2. Continue to treat suspected colitis conservatively. The patient was counseled that he will need a colonoscopy at some point, but this can be performed on an outpatient basis. Dictated By: Argenis Giles MD 10/30/2024 13:10 JOB #: [id number] Transcribed By: elvi 10/30/2024 14:32 Electronically signed by: E-SIGN DR. GILES 11/02/24 10:47 Page 2 of 2 DAYANNA APONTE Consultant Report [facility] Clinical Note 04-10-2014 Note Date & Type Note Facility 04-10-2014 Note [place] [facility] Gastrointestinal Endoscopy Patient Name: Dayanna Aponte Procedure Date: 04/10/2014 9:16 AM Date of : 1965 Admit Type: Ambulatory Age: 48 Gender: Male Note Status: Finalized Procedure: Upper GI endoscopy Indications: Heartburn, Gastro-esophageal reflux disease, Nausea Providers: Cooper Nelson MD Referring Physician: Gabriele Rosales MD Medicines: Benzocaine spray Complications: No immediate complications. Requesting Provider: Procedure: Pre-Anesthesia Assessment: - Prior to the procedure, a History and Physical was performed, and patient medications and allergies were reviewed. The patient's tolerance of previous anesthesia was also reviewed. The risks and benefits of the procedure and the sedation options and risks were discussed with the patient. All questions were answered, and informed consent was obtained. Prior Anticoagulants: The patient has taken no previous anticoagulant or antiplatelet agents. ASA Grade Assessment: II - A patient with mild systemic disease. After reviewing the risks and benefits, the patient was deemed in satisfactory condition to undergo the procedure. After obtaining informed consent, the endoscope was passed under direct vision. Throughout the procedure, the patient's blood pressure, pulse, and oxygen saturations were monitored continuously. The Endoscope was introduced through the mouth, and advanced to the second part of duodenum. The upper GI endoscopy was accomplished without difficulty. The patient tolerated the procedure well. Findings: The examined esophagus was normal. The Z-line was regular and was found 40 cm from the incisors. Diffuse moderately erythematous mucosa without bleeding was found in the gastric antrum. Biopsies were taken with a cold forceps for Helicobacter pylori testing. The examined duodenum was normal. No biopsies or other specimens were collected for this exam. Impression: - Normal esophagus. - Z-line regular, 40 cm from the incisors. - Erythematous mucosa in the antrum. Biopsied. - Normal examined duodenum. No specimens collected. Attending Participation: I personally performed the entire procedure. MD Cooper Cuevas MD 04/10/2014 9:32 AM This report has been signed electronically by Cooper Nelson MD Number of Addenda: 0 Note Initiated On: 04/10/2014 9:16 AM Procedure Start: 9:25:56 AM Procedure End: 9:28:58 AM [facility] Evaluation note Note Date & Type Note Facility Evaluation note Diagnosis Esophageal reflux- Primary Nausea alone Family history of malignant neoplasm of gastrointestinal tract documented in this encounter [facility] Family History No Family History Records Found Cancer Status:Active Comments:Father. stomach Cerebrovascular Accident Status:Active Comment s:Negative Family History Of. Coronary Artery Disease Status:Active Comments :Negative Family History Of. Diabetes Mellitus Type II Status:Active Commen ts:Paternal Uncle. Hypertension Status:Active Comments:Mother. Cancer Status:Active Comments:Father. stomach Cerebrovascular Accident Status:Active Comment s:Negative Family History Of. Coronary Artery Disease Status:Active Comments :Negative Family History Of. Diabetes Mellitus Type II Status:Active Commen ts:Paternal Uncle. Hypertension Status:Active Comments:Mother. Cancer Status:Active Comments:Father. stomach Cerebrovascular Accident Status:Active Comment s:Negative Family History Of. Coronary Artery Disease Status:Active Comments :Negative Family History Of. Diabetes Mellitus Type II Status:Active Commen ts:Paternal Uncle. Hypertension Status:Active Comments:Mother. Cancer Status:Active Comments:Father. stomach Cerebrovascular Accident Status:Active Comment s:Negative Family History Of. Coronary Artery Disease Status:Active Comments :Negative Family History Of. Diabetes Mellitus Type II Status:Active Commen ts:Paternal Uncle. Hypertension Status:Active Comments:Mother. Cancer Status:Active Comments:Father. stomach Cerebrovascular Accident Status:Active Comment s:Negative Family History Of. Coronary Artery Disease Status:Active Comments :Negative Family History Of. Diabetes Mellitus Type II Status:Active Commen ts:Paternal Uncle. Hypertension Status:Active Comments:Mother. Cancer Status:Active Comments:Father. stomach Cerebrovascular Accident Status:Active Comment s:Negative Family History Of. Coronary Artery Disease Status:Active Comments :Negative Family History Of. Diabetes Mellitus Type II Status:Active Commen ts:Paternal Uncle. Hypertension Status:Active Comments:Mother. Cancer Status:Active Comments:Father. stomach Cerebrovascular Accident Status:Active Comment s:Negative Family History Of. Coronary Artery Disease Status:Active Comments :Negative Family History Of. Diabetes Mellitus Type II Status:Active Commen ts:Paternal Uncle. Hypertension Status:Active Comments:Mother. Cancer Status:Active Comments:Father. stomach Cerebrovascular Accident Status:Active Comment s:Negative Family History Of. Coronary Artery Disease Status:Active Comments :Negative Family History Of. Diabetes Mellitus Type II Status:Active Commen ts:Paternal Uncle. Hypertension Status:Active Comments:Mother. Cancer Status:Active Comments:Father. stomach Cerebrovascular Accident Status:Active Comment s:Negative Family History Of. Coronary Artery Disease Status:Active Comments :Negative Family History Of. Diabetes Mellitus Type II Status:Active Commen ts:Paternal Uncle. Hypertension Status:Active Comments:Mother. Cancer Status:Active Comments:Father. stomach Cerebrovascular Accident Status:Active Comment s:Negative Family History Of. Coronary Artery Disease Status:Active Comments :Negative Family History Of. Diabetes Mellitus Type II Status:Active Commen ts:Paternal Uncle. Hypertension Status:Active Comments:Mother. Cancer Status:Active Comments:Father. stomach Cerebrovascular Accident Status:Active Comment s:Negative Family History Of. Coronary Artery Disease Status:Active Comments :Negative Family History Of. Diabetes Mellitus Type II Status:Active Commen ts:Paternal Uncle. Hypertension Status:Active Comments:Mother. Summary Purpose Advance Directives No Advanced Directives Records FoundNo Advanced Directives Records Found Additional Source Comments Source Comments (unrecognize d section and content) In the event this informatio n is protected by the Federal Confidentiality of Alcohol and Drug Abuse Patient Records regulations: The Federal rules restrict any use of the information to criminally investigate or prosecute any alcohol or drug abuse patient.[facility] Reason for Visit (unrecogniz ed section and content) Reason Onset Date Comments Outpatient Endoscopy 04/03/2014 04-10-2014 egd (unrecognized sect ion and content) No Status Records FoundNo Status Records Found INFORMATION SOURCE (unrecogn ized section and content) DATE CREATED AUTHOR 06/17/2023 [facility] DATE CREATED AUTHOR AUTHOR'S ORGANIZ ATION 12/11/2024 [facility] FOR RECORDS PERTAINING TO PATIENTS WHO ARE OR HAVE BEEN ENROLLED IN A CHEMICAL DEPENDENCY/SUBSTANCEABUSE PROGRAM, SOME INFORMATION MAY BE OMITTED. This clinical summary was aggregated from multiple sources. Caution should be exercised in using it in the provision of clinical care. This summary normalizes information from multiple sources, and as a consequence, information in this document may materially change the coding, format and clinical context of patient data. In addition, data may be omitted in some cases. CLINICAL DECISIONS SHOULD BE BASED ON THE PRIMARY CLINICAL RECORDS. [facility]. provides no warranty or guarantee of the accuracy or completeness of information in this document.
--- NOTE | 2025-02-13 07:57 | HP.PCM_ITS ---
[facility] - General General Date of Admission: 02/13/25 Date of Service: 02/13/25 Chief Complaint: Screening colonoscopy HPI Narrative DAYANNA APONTE, is a 59 M who presents [ Chief Complaint: Colonoscopy consultation The patient presents for discussion and scheduling of a first colonoscopy and preparation guidance. Denies use of blood thinners. Denies prior abdominal surgeries. Reports gallbladder and appendix intact. Does not take daily medic ations, vitamins, or supplements. Asks about colonoscopy preparation details and general gut health practices. Nursing staff has selected a procedure date and will provide written instructions. ] [facility] Medical History Wears glasses Gastric reflux Non-smoker History of stress test Acute low back pain Syncope Chest pain GERD (gastroesophageal reflux disease) Otitis externa Anxiety and depression Abdominal pain Gastritis Home Medications ?Medication ?Instructions ?Recorded ?Last Taken ?Type bisacodyl 5 mg tablet 20 mg (4 x 5 mg) PO ONCE #4 tabs 01/30/25 Unknown Rx polyethylene glycol 3350 17 238 g PO ONCE #238 grams 1 04/02/24 Unknown Rx gram/dose oral powder Allergy/AdvReac Type Severity Reaction Status Date / Time No Known Allergies Allergy Verified 02/11/25 14:20 Family History Mother Hypertension Father Cancer Stomach Sister Breast cancer Surgical History Hx of unilateral orchiectomy History of tonsillectomy Social History current occupational status: employed 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 [employer] current occupational exposures/hazards: Yes (Cleaning chemicals) pets and animals: Yes pets and animals: cat(s) Smoking Status: Never smoker Electronic Cigarette Use: not used alcohol intake: never substance use type: does not use caffeine: Yes Type: carbonated beverages, coffee and tea what type of physical activity do you participate in: none seatbelt use: always do you feel safe at home: Yes ROS Constitutional Constitutional: Denies fatigue, fever(s), poor appetite, weight gain or weight loss Gastrointestinal Gastrointestinal: Denies belching, bloating, change in bowel habits, change in stool character, chewing difficulty, coffee ground emesis, constipation, cramping, diarrhea, dyspepsia, dysphagia, early satiety, excessive flatus, fecal incontinence, heartburn, hematemesis, hematochezia, hemorrhoids, loose stools, melena, nausea, odynophagia, rectal bleeding, tenesmus, vomiting or weight changes Patient's Goals Of Care . What would you like to achieve or improve as a result of your hospital stay?: None Physical Exam Const alert, oriented x3, no apparent distress and healthy appearing General Appearance: cooperative GI normal to inspection, nondistended, normoactive bowel sounds, soft to palpation, non-tender and non-distended Percussion: normal to percussion Rectal Exam: deferred Assessment & Plan Assessment/Plan (1) Encounter for screening colonoscopy: PLAN: Assessment and Plan Assessment and Plan (1) Encounter for screening colonoscopy: Status: Acute Plan: Colorectal cancer screening : Scheduling and preparation discussed for a first colonoscopy; no blood thinners reported; no prior abdominal surgeries noted; patient expects written instructions from nursing staff. - Schedule colonoscopy in the hospital endoscopy suite with sedation. - Advise clear liquid diet the day before the procedure. - Advise starting liquids a couple of days prior to the procedure and avoiding fiber during that period. - Recommend [id number] simethicone (Gas?X) for about three days prior to the prep to reduce bloating caused by sugar-based solutions. - Nursing staff (Nickie) to provide written instructions and review the prep steps. - If polyps are found, perform polypectomy during the procedure and send sp ecimens for pathology evaluation to assess for precancer. Health maintenance : Patient requested guidance on practices to support gut and colon health. - Recommend supplemental fiber (liquid, pills, or gummies) for prebiotic benefits that promote short-chain fatty acid production and may help decrease cholesterol. Portions of this note were generated using voice recognition software ([employer]). I have reviewed the contents and every effort has been made to ensure accuracy; however, inadvertent errors in grammar, spelling, punctuation, or word choice may occur, that were not noted before signing the document and should not alter the intended clinical meaning.
[2025-02-13] MEDS: Lactated Ringers 1,000 ML 15 ML IV (08:09)
--- NOTE | 2025-02-13 08:18 | PRE.ANES_ITS ---
ASA Classification* ASA Classification ASA Classification: 2 Assessment & Plan Anesthesia* Anesthesia Assessment Anesthesia Assessment: Discussed sedation and/or anesthesia options, risks, benefits, and alternatives with patient/parents/legal guardian/POA. Questions invited. The patient/parents/legal guardian/POA seems to understand and agrees to proceed with anesthesia plan. Reviewed the physical assessment, medical history, allergy history and patient home medications list prior to surgery/procedure/anesthetic and documented any changes. Performed airway and anesthesia risk assessments. 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 When Was Last Pacemaker Check QUESTION #4 FULL TEXT: You/Your Family Experience fever (hyperthermia) with Anesthesia Last Oral Intake Last Oral intake: Last Oral Intake NPO since 23:00 02/13/25 08:02 Meds taken in AM with sips of water? 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 Female Yes 02/11/25 14:20 HX of Motion Sickness No 02/11/25 14:20 HX of N/V After Surgery No 02/11/25 14:20 Non-Smoker Yes 02/11/25 14:20 Duration of Surgery greater No 02/11/25 14:20 than 60 minutes Number of Risk Factors 2 02/11/25 14:20 PONV Score Moderate Risk 02/11/25 14:20 Height & Weight Height & Weight: Anesthesia: Height & Weight Height 5 ft 10 in 02/13/25 08:02 Weight: 81.647 kg 02/13/25 08:02 Body Mass Index (BMI) 25.8 02/13/25 08:02 Respiratory Assessment Respiratory Assessment - railroad wheels and axles inspector: Respiratory Tract Infection Hx - railroad wheels and axles inspector Hx Respiratory Tract Infection No 02/11/25 14:20 STOP Sleep Apnea STOP Sleep Apnea - railroad wheels and axles inspector: STOP Sleep Apnea - railroad wheels and axles inspector Hx Hypertension No 02/11/25 14:20 Hx Sleep Apnea No 02/11/25 14:20 CPAP BIPAP Do you snore loudly (louder No 02/11/25 14:20 than talking or can be heard Do you often feel tired/ No 02/11/25 14:20 fatigued/ sleepy during daytime? Has anyone observed you stop No 02/11/25 14:20 breathing during sleep? STOP Results Negative 02/11/25 14:20 QUESTION #5 FULL TEXT : Do you snore loudly (louder than talking or can be heard through closed doors)? 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 Specify any problems Hx of Preganancy in last 3 N/A 02/11/25 14:20 Months Nurse Filling Out Transfusion VLEHMAN 02/11/25 14:20 & Questions: Date: 02/11/25 02/11/25 14:20 Time: :02/11/25 14:20 Patient unable to answer at this time (ie. confused, unrespo /Reproduction History /Reproductive History - railroad wheels and axles inspector: /Reproductive Hx- railroad wheels and axles inspector Hx Now Gestational Age (in weeks): EDC: Hx Hx Para Hx Section SAB Does the father of the baby or his family experience fever w Father of the baby Malignant Hypertension history comment Active Medications Active Medications: Current Medications Generic Name Dose Route Start Last Admin Trade Name Kaushal PRN Reason Stop Dose Admin Lactated Ringer's 1,000 mls @ 15 mls/hr 02/13/25 08:00 02/13/25 08:09 IV 15 mls/hr .Q48H JONH Administration PFSH Medical History Wears glasses Gastric reflux Non-smoker History of stress test Acute low back pain Syncope Chest pain GERD (gastroesophageal reflux disease) Otitis externa Anxiety and depression Abdominal pain Gastritis Home Medications ?Medication ?Instructions ?Recorded ?Last Taken ?Type bisacodyl 5 mg tablet 20 mg (4 x 5 mg) PO ONCE #4 tabs 01/30/25 Unknown Rx polyethylene glycol 3350 17 238 g PO ONCE #238 grams 1 04/02/24 Unknown Rx gram/dose oral powder Allergy/AdvReac Type Severity Reaction Status Date / Time No Known Allergies Allergy Verified 02/13/25 08:01 Family History Mother Hypertension Father Cancer Stomach Sister Breast cancer Surgical History Hx of unilateral orchiectomy History of tonsillectomy Social History current occupational status: employed 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
--- NOTE | 2025-02-13 08:45 | COLBX_PTH ---
PATIENT: DAYANNA APONTE LOC: EN U#:[id number] AGE/SX: 59/M ROOM: RE02/13/[address]: Dr. Jesus Brizuela DO : 1965 BED: DIS: 02/13/2025 SPEC #: [id number] RECD: 02/13/25 09:49 STATUS: MARVIN HENRY #: [id number] ANH: 02/13/25 08:[address]: Jesus Brizuela DEPT: SURGICAL PATHOLOGY RECD BY: Fabby Turner ENTERED: 02/13/25 11:20 SP TYPE: COLON BX OTHR DR: Dr. Gabriele Rosales MD Tissues: A - COLON BIOPSY B - Descending colon Procedures: Surgery Specimen Level IV HEADER OPERATION: Colonoscopy with polypectomy, argon plasma coagulation PRE-OP DIAGNOSIS: Encounter for screening colonoscopy TISSUE SUBMITTED: A. Splenic flexure nalini BLiban Descending colon polyp MICROSCOPIC DIAGNOSIS A. Colon, splenic flexure, polyp, biopsy: - Hyperplastic crypt change with focal changes suspicious for low grade dysplasia - see note. Note: The assessment is limited by cautery artifact. A tubular adenoma cannot be ruled out. B. Descending colon, polyp, biopsy: - Tubular adenoma. MICROSCOPIC DESCRIPTION Slides are reviewed. GROSS DESCRIPTION A. Received is one container labeled with the patient name and designated splenic flexure polyp. The specimen consists of multiple irregular fragments of light black soft tissue that in aggregate measure 1 x 0.5 x 0.3 cm. The specimen is totally submitted in one cassette. B. Received is one container labeled with the patient name and designated descending colon polyp. The specimen consists of multiple irregular fragments of light black soft tissue that in aggregate measure 0.5 x 0.3 x 0.2 cm. The specimen is totally submitted in one cassette. 02/12/2025 CPT:12707j4
[2025-02-13] MEDS: Lactated Ringers 500 ML IV (09:01)
--- NOTE | 2025-02-13 09:40 | PCM.POST.ANE ---
Anesthesia: Postop Eval I Current Vital Signs Temperature: 97 F Pulse Rate: 50 Blood Pressure: 99/65 Respiratory Rate: 16 Pulse Ox: 93 Assessment Airway patent: Yes Spontaneous unlabored respirations: Yes nausea: No Vomiting: No Anesthesia Complication: No Fluid Hydration Crystalloid volume administer (ml): 500 Total IV fluid infused: 500 Progress Note Anesthesia document: Postop Eval 1 completed: Yes
--- NOTE | 2025-02-13 09:43 | OP.COLON_ITS ---
Patient Name: Lino Pino Procedure Date: 02/13/2025 8:56 AM Date of : 1965 Age: 59 Procedure: Colonoscopy Indications: Screening for colorectal malignant neoplasm Providers: Jesus Brizuela DO Referring MD: Gabriele Rosales Medicines: Monitored Anesthesia Care Patient Profile: This is a 59 year old male. Refer to note in patient chart for documentation of history and physical. Last Colonoscopy: 10 years ago. Complications: No immediate complications. Procedure: Pre-Anesthesia Assessment: - Prior to the procedure, a History and Physical was performed, and patient medications and allergies were reviewed. The patient is competent. The risks and benefits of the procedure and the sedation options and risks were discussed with the patient. All questions were answered and informed consent was obtained. Patient identification and proposed procedure were verified by the physician. Mental Status Examination: alert and oriented. Airway Examination: normal oropharyngeal airway and neck mobility. Respiratory Examination: clear to auscultation. CV Examination: normal. Prophylactic Antibiotics: The patient does not require prophylactic antibiotics. Prior Anticoagulants: The patient has taken no anticoagulant or antiplatelet agents except for NSAID medication. ASA Grade Assessment: II - A patient with mild systemic disease. After reviewing the risks and benefits, the patient was deemed in satisfactory condition to undergo the procedure. The anesthesia plan was to use monitored anesthesia care (MAC). Immediately prior to administration of medications, the patient was re-assessed for adequacy to receive sedatives. The heart rate, respiratory rate, oxygen saturations, blood pressure, adequacy of pulmonary ventilation, and response to care were monitored throughout the procedure. The physical status of the patient was re-assessed after the procedure. After I obtained informed consent, the scope was passed under direct vision. Throughout the procedure, the patient's blood pressure, pulse, and oxygen saturations were monitored continuously. The pediatric colonoscope was introduced through the anus and advanced to the cecum, identified by appendiceal orifice and ileocecal valve. The colonoscopy was performed without difficulty. The patient tolerated the procedure well. The quality of the bowel preparation was adequate. The ileocecal valve, appendiceal orifice, and rectum were photographed. Scope In: 9:07:05 AM Scope Withdrawal Time 0 hours 22 minutes 46 seconds Scope Out: 9:31:53 AM Total Procedure Duration Time 0 hours 24 minutes 48 seconds Findings: The perianal and digital rectal examinations were normal. A 30 mm polyp was found in the splenic flexure. The polyp was sessile. The polyp was removed with a hot snare. The polyp was removed with a piecemeal technique using a hot snare. Resection and retrieval were complete. Coagulation for tissue destruction using argon plasma at 0.6 liters/minute and 30 milligan was successful. Estimated blood loss was minimal. Area was tattooed with an injection of 0.3 mL of Cele ink. Two sessile polyps were found in the descending colon. The polyps were 7 mm in size. These polyps were removed with a jumbo cold forceps. Resection and retrieval were complete. Verification of patient identification for the specimen was done. A few small-mouthed diverticula were found in the recto-sigmoid colon and sigmoid colon. Impression: - One 30 mm polyp at the splenic flexure, removed with a hot snare and removed piecemeal using a hot snare. Resected and retrieved. Treated with argon plasma coagulation (APC). Tattooed. - Two 7 mm polyps in the descending colon, removed with a jumbo cold forceps. Resected and retrieved. - Diverticulosis in the recto-sigmoid colon and in the sigmoid colon. Recommendation: - Await pathology results. - Repeat colonoscopy in 1 year for surveillance. - Continue present medications. Procedure Code(s): --- Professional --- 43185, Colonoscopy, flexible; with ablation of tumor(s), polyp(s), or other lesion(s) (includes pre- and post-dilation and guide wire passage, when performed) 54823, 59, Colonoscopy, flexible; with biopsy, single or multiple 40278, Colonoscopy, flexible; with directed submucosal injection(s), any substance CPT copyright 2021 [employer]. All rights reserved. The codes documented in this report are preliminary and upon sole molding machine operator review may be revised to meet current compliance requirements. Jesus Brizuela DO 02/13/2025 9:42:35 AM This report has been signed electronically. Number of Addenda: 0 Note Initiated On: 02/13/2025 8:56 AM
--- NOTE | 2025-02-13 09:43 | OP.PROVAT_ITS ---
02/13/2025 Gabriele Rosales Re : Colonoscopy procedure for Lino Pino Jessika Rosales This procedure was performed on Thursday, February 13, 2025. My impressions and recommendations are as follows: Impressions : - One 30 mm polyp at the splenic flexure, removed with a hot snare and removed piecemeal using a hot snare. Resected and retrieved. Treated with argon plasma coagulation (APC). Tattooed. - Two 7 mm polyps in the descending colon, removed with a jumbo cold forceps. Resected and retrieved. - Diverticulosis in the recto-sigmoid colon and in the sigmoid colon. Recommendations : - Await pathology results. - Repeat colonoscopy in 1 year for surveillance. - Continue present medications. My findings are described in the full procedure note, which is enclosed. If I can be of further assistance, please feel free to contact me at . Sincerely, Jesus Brizuela, 02/13/2025 9:42:35 AM This report has been signed electronically.
--- NOTE | 2025-02-13 10:27 | PCM.POSTANE2 ---
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.TNES Spontaneous unlabored Yes 02/13/25 09:40 METAL SANDER AND FINISHER.TNES respirations Mental status nausea No 02/13/25 09:40 METAL SANDER AND FINISHER.TNES Vomiting No 02/13/25 09:40 METAL SANDER AND FINISHER.TNES Anesthesia Postop Eval I: Fluid Summary Crystalloid volume administer 500 02/13/25 09:40 METAL SANDER AND FINISHER.TNES (ml) Colloids volume administered ( ml) Blood Product volume administered (ml) Total IV fluid infused 500 02/13/25 09:40 METAL SANDER AND FINISHER.TNES Anesthesia Postop Eval I: Summary Notes Anesthesia Complication No 02/13/25 09:40 METAL SANDER AND FINISHER.TNES Anesthesia Complication Comment: Post-operative progress note Anesthesia: Postop Eval II Evaluation Mental status: Awake Pain Level: 0 nausea: No Vomiting: No
--- NOTE | 2025-02-13 10:27 | POSTOPAN2_ITS ---
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
== END 2025-02-13 10:15 | disposition home or self-care (01) ==
LOC: EN 07:49 → AC 07:50
PROVIDERS: PCP Family Medicine; Referring Provider Family Medicine; Visit Provider Internal Medicine Gastroenterology
PROC: 0DJD8ZZ Inspection of Lower Intestinal Tract, Via Natural or Artificial Opening Endoscopic (ICD-10-PCS; CPT 45378; principal; 2025-02-13 08:40)
DX: Z12.11 Encounter for screening for malignant neoplasm of colon (principal); K57.30 Diverticulosis of large intestine without perforation or abscess without bleeding; K63.5 Polyp of colon; K21.9 Gastro-esophageal reflux disease without esophagitis; D12.4 Benign neoplasm of descending colon
CPT/HCPCS: 45381; 45385; 45380; 45388; 88305; C1889; A4648